=== PATIENT | male | born 1940 | race Caucasian/White ===

== ENCOUNTER 2020-05-01 08:30 | Outpatient (REF) | payer MEDICARE, SELFPAY ==
[2020-05-01 10:35] LABS: Estimated Average Glucose 137 mg/dL; Hemoglobin A1c % 6.4 %
[2020-05-01 10:59] LABS: Carbon Dioxide 26 mmol/L (22-29); Chloride 107 mmol/L (96-108); Potassium 4.4 mmol/L (3.3-5.1); Sodium 143 mmol/L (135-145)
[2020-05-01 11:00] LABS: Alanine Aminotransferase 18 U/L (0-40); Anion Gap 14 (12-20); Blood Urea Nitrogen 19 mg/dL (9-16); Cholesterol 109 mg/dL; Estimated Glomerular Filt Rate > 60; Glucose Fasting 141 mg/dL (60-99); HDL Cholesterol 38 mg/dL; LDL Cholesterol Calculated 44 mg/dl; Triglycerides 139 mg/dL
== END 2020-05-01 08:31 | disposition home or self-care (01) ==
LOC: HO.10HDL 08:30
PROVIDERS: Absent Provider Internal Medicine; Visit Provider Family Medicine
DX: I10 Essential (primary) hypertension (principal); E11.9 Type 2 diabetes mellitus without complications; E78.00 Pure hypercholesterolemia, unspecified; Z79.899 Other long term (current) drug therapy
CPT/HCPCS: 36415; 80051; 80061; 82550; 82565; 82947; 83036; 84460; 84520

== ENCOUNTER 2020-11-02 09:29 | Outpatient (REF) | payer MEDICARE, SELFPAY ==
[2020-11-02 10:52] LABS: Estimated Average Glucose 131 mg/dL; Hemoglobin A1c % 6.2 %
[2020-11-02 10:57] LABS: Anion Gap 16 (12-20); Blood Urea Nitrogen 15 mg/dL (9-16); Carbon Dioxide 23 mmol/L (22-29); Chloride 107 mmol/L (96-108); Glucose Fasting 143 mg/dL (60-99); Potassium 4.2 mmol/L (3.3-5.1); Sodium 142 mmol/L (135-145)
[2020-11-02 11:20] LABS: Prostate Specific Antigen Scr 2.35 ng/mL (<0.05-4.0)
[2020-11-05 12:15] LABS: Microalbum/Creatinine Ratio Ur 58.8 ug/mg cr
== END 2020-11-02 09:30 | disposition home or self-care (01) ==
LOC: HO.LAB 09:29
PROVIDERS: PCP Family Medicine; Visit Provider Family Medicine
DX: I10 Essential (primary) hypertension (principal); E11.9 Type 2 diabetes mellitus without complications; R32 Unspecified urinary incontinence; Z12.5 Encounter for screening for malignant neoplasm of prostate
CPT/HCPCS: 36415; 80051; 82043; 82947; 83036; 84153; 84520

== ENCOUNTER 2021-03-23 23:28 | Inpatient (IN) | payer MEDICARE, SELFPAY ==
--- NOTE | ~2021-03-23 | XR_ITS ---
EXAMINATION: XR CHEST CLINICAL INFORMATION: Weakness, cough, syncope COMPARISON: 08/09/2018 TECHNIQUE: 2 views of the chest were obtained. FINDINGS: The lungs are well expanded. Persistent elevation of the right hemidiaphragm. There is no focal consolidation, edema, or effusion. No pneumothorax. The cardiomediastinal silhouette is within normal limits. No acute osseous abnormality. Degenerative changes of the spine. XR/XR chest 2V IMPRESSION: No acute pulmonary finding.
--- NOTE | ~2021-03-23 | XR_ITS ---
EXAMINATION: XR KNEE, RIGHT CLINICAL INFORMATION: Pain after fall COMPARISON: None TECHNIQUE: AP and lateral views of the right knee. FINDINGS: No definite acute fracture or dislocation is seen. No right knee effusion is seen. Joint spaces are maintained. Seen overlying the femoral condyles measuring 1.7 x 1.0 cm in size. There are prominent vascular calcifications present. There are prominent patella spurs at sites of insertion of the quadriceps tendon and patellar tendon with some segmentation about the quadriceps tendon spur which could be related to acute or chronic injury however I do not definitely see a donor site for an acute fracture and its margins are circumscribed. No significant soft tissue swelling seen in this region. There is also noted to be prominent spurring of the tibial tubercle. There is a sclerotic density XR/XR knee RT 2V IMPRESSION: Prominent changes of enthesopathy about the right knee. No definite acute fracture or effusion is appreciated. Circumscribed sclerotic region overlying the femoral condyles likely representing a benign process.
--- NOTE | ~2021-03-23 | CT_ITS ---
EXAMINATION: NONCONTRAST HEAD CT NONCONTRAST CERVICAL SPINE CT INDICATION INFORMATION: Fall COMPARISON: 03/24/2021 TECHNIQUE: Separate noncontrast CT examinations of the head and cervical spine were performed. Coronal and sagittal images were created for each examination at the technologist workstation. This CT examination was performed using dose optimization techniques as appropriate, variously including the following: *Automated exposure control *Adjustment of mA and/or kV according to patient size (this includes techniques or standardized protocols for targeted exams where dose is matched to indication/reason for exam; i.e. extremities or head) *Use of iterative reconstruction technique DLP: 1301 mGy-cm FINDINGS: Head: There is no evidence of acute intracranial hemorrhage or territorial infarction. No abnormal mass effect or midline shift is seen. Garcia to white matter differentiation is well preserved. No extra-axial fluid collections are identified. No hydrocephalus. Proportional prominence of the ventricles and sulcal spaces is consistent with mild volume loss. Patchy periventricular and deep white matter hypoattenuation is consistent with mild small vessel ischemic changes. No acute osseous or soft tissue abnormality. Mild mucoperiosteal thickening of the right maxillary sinus. The mastoid air cells and visualized portions of the paranasal sinuses are otherwise well aerated. Cervical spine: There is anatomic alignment of the vertebral bodies and posterior elements. The atlantoaxial and atlantooccipital articulations are intact. Vertebral body heights are maintained. There is multilevel intervertebral disc space narrowing with endplate osteophyte formation and facet arthropathy. No evidence of acute fracture. No prevertebral soft tissue swelling. Mild emphysema at the lung apices. The thyroid gland is unremarkable. CT/CT cervical spine wo con IMPRESSION: 1. No acute intracranial finding. 2. No fracture or malalignment of the cervical spine. Moderate degenerative changes.
--- NOTE | ~2021-03-23 | CT_ITS ---
EXAMINATION: CT HEAD WITHOUT CONTRAST CLINICAL INFORMATION: Weakness. Confusion. Syncope. COMPARISON: 01/24/2014 TECHNIQUE: Contiguous axial imaging was performed from the skull base to vertex without intravenous contrast. This CT examination was performed using dose optimization techniques as appropriate, variously including the following: * Automated exposure control * Adjustment of mA and/or kV according to patient size (this includes techniques or standardized protocols for targeted exams where dose is matched to indication/reason for exam; i.e. extremities or head) Use of iterative reconstruction technique DLP: 764 mGy-cm. FINDINGS: There is no evidence of acute intracranial hemorrhage or territorial infarction. No abnormal mass effect or midline shift is seen. Garcia to white matter differentiation is well preserved. No extra-axial fluid collections are identified. No hydrocephalus. Proportional prominence of the ventricles and sulcal spaces is consistent with mild volume loss. Patchy periventricular and deep white matter hypoattenuation is consistent with mild small vessel ischemic changes. The osseous structures and soft tissues are normal. The mastoid air cells and visualized portions of the paranasal sinuses are well aerated. CT/CT head/brain wo con IMPRESSION: No acute intracranial pathology. Chronic volume loss with small vessel ischemic change.
[2021-03-23 23:46] VITALS: BP 132/50; BP 140/80; PULSE 65; PULSE 67; RESP 20; TEMP 36.6; O2SAT 100; O2SAT 98; BMI 12.4
--- NOTE | 2021-03-23 23:57 | ED_ITS ---
HPI - General Adult General Chief complaint: General Medical Stated complaint: WEAKNESS,DIZZINESS XWEEKS,FEELING BETTER NOW Time Seen by Provider: 03/23/21 23:57 Source: patient and family ( , [place] who can be reached at ( [phone]) Mode of arrival: EMS Limitations: altered mental status ( patient has memory deficits secondary to Alzheimer's dementia) History of Present Illness HPI narrative: 80-year-old male who presents emergency department for evaluation of a syncopal episode that occurred at home and from the his . According to his , the patient was in the kitchen to get some diabetic candy when he called for help. When she went into the kitchen she states the patient told her that he felt dizzy as if he was going to pass out. She had him sit in his walker chair and she wheeled him into the bedroom. Which got into the bedroom the patient passed out in the walker chair but did not fall out of a chair. She states that he was unable to talk, his head rolled back, his mouth was open his eyes were shot. He appeared to have difficulty breathing. This lasted approximately 5 minutes. She states when the paramedics arrived at their home, the patient was more awake but lethargic. The paramedics found that the patient's point of care glucose was 250. They gave him a fluid bolus lactated Ringer's and transported him to the emergency department. In the emergency department the patient is awake and alert, he has memory deficits secondary to his Alzheimer's dementiae but he was able to tell me that he felt dizzy as if he was going to pass out but cannot give any other details regarding his presentation. according to his , the patient has had several episodes of diarrhea over the past several days but otherwise has been eating and drinking normally. She states that he has been declining over the past 4 weeks. The patient has diabetic neuropathy and has weakness of his legs. The patient has had at least 8 falls over the past 4 weeks. She states that he refuses to bathe or shave. He has episodes where he stops talking and will not answer questions but has not had any seizure-like activity . She states that he is very deconditioned and they have been pursuing assisted care for him. The patient has received in the Moderna vaccine x3 vaccinations. Related Data Allergies Allergy/AdvReac Type Severity Reaction Status Date / Time No Known Allergies Allergy Unverified 11/23/19 16:29 [No Known Allergies*] Review of Systems 2 Review of Systems: Yes all other systems are reviewed and are negative ( Obtained from ) [facility] Past Medical History [facility] Narrative: past medical history: Diabetes mellitus, coronary disease, myocardial infarction with 2 stents and 2000 and 2015, Alzheimer's dementia, diabetic neuropathy. social history: He lives at home with his . He is a former smoker and smoked approximately 1 pack per day times 15-20 years, he stops 10 years prior. He states that he rarely drinks alcohol. He denies drug use. Social History Social History Alcohol intake: never Patient Tobacco Use Status: Never used Tobacco Use of substances other than those prescribed or required for medical reasons: No Advance Directives: No Advance Directives Information Provided: Yes Physical Exam Vital Signs: Vital Signs: Last Vital Signs Temp 97.3 F 03/24/21 04:00 Pulse 72 03/24/21 04:00 Resp 03/24/21 04:00 BP 140/51 H 03/24/21 04:00 Pulse Ox 96 03/24/21 04:00 BMI result Body Mass Index 12.4 Const: Other: Awake, alert, male patient very pleasant and cooperative, does not appear to be in distress, oriented to person and place, lacks insight as to why he came to the emergency department today HENMT: Head: Yes normal to inspection, Yes normocephalic and Yes atraumatic Ears: external ears normal General nose exam: Normal external nose present Face and sinus: Yes normal facial exam Mouth: Normal oral and palatal mucosa present Throat: Yes posterior oropharynx normal Eyes: General: appearance normal, both eyes and all related structures Pupils: Equal, round and reactive pupils present Neck: Neck: Yes normal visual inspection, Yes no lymphadenopathy, Yes trachea midline and Yes supple Chest: Chest palpation & inspection: normal inspection of the chest and normal palpation of entire chest wall Resp: Effort & Inspection: normal respiratory effort and able to speak in complete sentences Auscultation: clear to auscultation bilaterally Cardio: Rate: regular rate Rhythm: regular rhythm Heart sounds: S1 normal heart sound present, S2 normal heart sound present and no murmurs GI: Inspection: Yes normal to inspection Palpation (GI): Soft to palpation, nontender and no guarding Auscultation: normal bowel sounds : General: Yes no CVA tenderness Back/Spine/Pelvis: Back: no CVA tenderness Skin: General skin exam: no rashes or lesions noted Neuro: Cranial nerves: Yes CN's II-XII intact bilaterally and Yes Equal, round and reactive pupils present Cognition (Neuro): normal cognition Motor exam (neuro): 5/5 motor strength present throughout Extrem: General: Yes normal to inspection Psych: Appearance: grossly normal Speech and movement: Normal speech and movement present Affect: normal affect Attitude: cooperative Thought process: Normal thought process present Thought content: Normal thought content present Course Course Course Narrative: 80-year-old male who presents emergency department for evaluation of a syncopal episode at home witnessed by his . The patient was in his kitchen when he felt dizzy as if he is going to pass out. He called for his who put him in his walker wheelchair and brought him back to the bedroom. While he was still in the wheelchair he had a syncopal episode that lasted approximately 5 minutes with no seizure-like activity according to the . The patient was lethargic but more responsive by the time the paramedics arrived and here in the emergency department the patient is at his baseline. The states the patient has been deteriorating over the past 4 weeks and has had lower extremity weakness secondary to his diabetic neuropathy causing him to fall at least 8 times. She states these had several episodes of diarrhea over the past 2 days otherwise has been in his usual state of health. Initial vital signs revealed a blood pressure of 132/50, pulse of 67, respiratory of 20, temperature of 98? F O2 saturation of 100% on room air. The patient's physical examination was unremarkable. I did order a syncope workup to include CBC, CMP, troponin, SARS /influenza/ RSV testing, Urinalysis, EKG, CT scan of the brain without IV contrast and two view chest x-ray. we will check orthostatic vital s igns. The patient was ordered to get normal saline IV x1 L. 0312: Laboratory evaluation: CBC revealed an elevated white blood count 42833, H&H was 6.6 and 24.3. This was repeated and confirmed at 6.8 and 24.8. Patient has a low MCV of 65.7. Platelet count was normal. CMP revealed an elevated BUN of 27, elevated glucose 133, elevated bilirubin 1.2. High sensitivity troponin I was detectable at 4.9 but not elevated. Lipase was normal. Urinalysis is pending collection. Alcohol levels below detectable limits. Influenza, RSV and COVID-19 test were negative. Chest x-ray was negative. CT scan of the head revealed no acute process, he has chronic volume loss with small vessel ischemic changes. Twelve EKG was unremarkable. Patient's rectal exam revealed loose brown stool which was Hemoccult negative on my examination. The patient has a severe microcytic anemia and I foy spect that he has GI loss, he does have an elevated BUN so it is likely that he might have an upper GI source. The patient will be given Protonix 80 mg IV. Patient was ordered to get 1 unit of packed red blood cells transfused. Will discuss admission with the covering hospitalist. 0420: Patient was accepted by the covering hospitalist. Medical Decision Making Lab Data Result diagrams: 03/24/21 01:42 03/24/21 00:55 Labs: Lab Results 03/24/21 03/24/21 03/24/21 Range/Units 00:55 00:55 00:55 WBC (4.8-10.8) X10*3/uL RBC (4.60-5.80) X10*6/uL Hgb (14.0-18.0) g/dl Hct (42.0-52.0) % MCV (80.0-98.0) fL MCH (27.0-33.0) pg MCHC (31.0-36.0) g/dl RDW (11.0-16.0) % Plt Count (160-400) X10*3/uL MPV (9.4-12.4) fL Immature Gran % (Auto) (0.0-0.4) % Neut % (Auto) (45-73) % Lymph % (Auto) (20-40) % Treasure % (Auto) (2-11) % Eos % (Auto) (0-4) % Baso % (Auto) (0-2) % Lymph # (Auto) (1.2-4.9) X10*3/uL Treasure # (Auto) (0.1-1.2) X10*3/uL Eos # (Auto) (0.0-0.4) X10*3/uL Baso # (Auto) (0.0-0.2) X10*3/uL Abs Immat Gran (auto) (0.00-0.03) X10*3/uL Absolute Neuts (auto) (2.0-8.3) x10*3/uL Absolute Nucleated RBC (0.0-0.012) X10*3/uL Nucleated RBC % (auto) (0.0-0.2) /100WBC Sodium 138 (135-145) mmol/L Potassium 4.2 (3.3-5.1) mmol/L Chloride 102 (96-108) mmol/L Carbon Dioxide 23 (22-29) mmol/L Anion Gap 17 (12-20) BUN 27 H (9-16) mg/dL Creatinine 1.27 (0.5-1.4) mg/dL Estim Creat Clear Calc 22.1 Estimated GFR 54 Random Glucose 133 H (60-115) mg/dL Calcium 9.1 (8.4-10.2) mg/dL Total Bilirubin 1.2 H (0.0-1.0) mg/dL AST 27 (5-37) U/L ALT 18 (0-40) U/L Alkaline Phosphatase 77 (39-117) U/L Troponin I High Sens (<3.5-35.0) ng/L Total Protein 7.0 (6.5-8.0) g/dL Albumin 3.8 (3.5-5.0) g/dL Lipase 37 (8-78) U/L Stool Occult Blood (NEGATIVE) Ethyl Alcohol < 10 mg/dL Influenza Type A (PCR) NEGATIVE (Negative) Influenza Type B (PCR) NEGATIVE (Negative) RSV RNA Qual (PCR) NEGATIVE (Negative) SARS-CoV-2 RNA (RT-PCR) NEGATIVE (Negative) Blood Type Antibody Screen Crossmatch 03/24/21 03/24/21 03/24/21 Range/Units 01:00 01:00 01:42 WBC 11.7 H (4.8-10.8) X10*3/uL RBC 3.70 L (4.60-5.80) X10*6/uL Hgb 6.6 L* 6.8 L* (14.0-18.0) g/dl Hct 24.3 L 24.8 L (42.0-52.0) % MCV 65.7 L (80.0-98.0) fL MCH 17.8 L (27.0-33.0) pg MCHC 27.2 L (31.0-36.0) g/dl RDW 20.0 H (11.0-16.0) % Plt Count 284 (160-400) X10*3/uL MPV 9.0 L (9.4-12.4) fL Immature Gran % (Auto) 0.4 (0.0-0.4) % Neut % (Auto) 78.8 H (45-73) % Lymph % (Auto) 11.2 L (20-40) % Treasure % (Auto) 8.4 (2-11) % Eos % (Auto) 0.7 (0-4) % Baso % (Auto) 0.5 (0-2) % Lymph # (Auto) 1.3 (1.2-4.9) X10*3/uL Treasure # (Auto) 1.0 (0.1-1.2) X10*3/uL Eos # (Auto) 0.1 (0.0-0.4) X10*3/uL Baso # (Auto) 0.1 (0.0-0.2) X10*3/uL Abs Immat Gran (auto) 0.05 H (0.00-0.03) X10*3/uL Absolute Neuts (auto) 9.2 H (2.0-8.3) x10*3/uL Absolute Nucleated RBC 0.000 (0.0-0.012) X10*3/uL Nucleated RBC % (auto) 0.0 (0.0-0.2) /100WBC Sodium (135-145) mmol/L Potassium (3.3-5.1) mmol/L Chloride (96-108) mmol/L Carbon Dioxide (22-29) mmol/L Anion Gap (12-20) BUN (9-16) mg/dL Creatinine (0.5-1.4) mg/dL Estim Creat Clear Calc Estimated GFR Random Glucose (60-115) mg/dL Calcium (8.4-10.2) mg/dL Total Bilirubin (0.0-1.0) mg/dL AST (5-37) U/L ALT (0-40) U/L Alkaline Phosphatase (39-117) U/L Troponin I High Sens 4.9 (<3.5-35.0) ng/L Total Protein (6.5-8.0) g/dL Albumin (3.5-5.0) g/dL Lipase (8-78) U/L Stool Occult Blood (NEGATIVE) Ethyl Alcohol mg/dL Influenza Type A (PCR) (Negative) Influenza Type B (PCR) (Negative) RSV RNA Qual (PCR) (Negative) SARS-CoV-2 RNA (RT-PCR) (Negative) Blood Type Antibody Screen Crossmatch 03/24/21 03/24/21 Range/Units 01:42 03:10 WBC (4.8-10.8) X10*3/uL RBC (4.60-5.80) X10*6/uL Hgb (14.0-18.0) g/dl Hct (42.0-52.0) % MCV (80.0-98.0) fL MCH (27.0-33.0) pg MCHC (31.0-36.0) g/dl RDW (11.0-16.0) % Plt Count (160-400) X10*3/uL MPV (9.4-12.4) fL Immature Gran % (Auto) (0.0-0.4) % Neut % (Auto) (45-73) % Lymph % (Auto) (20-40) % Treasure % (Auto) (2-11) % Eos % (Auto) (0-4) % Baso % (Auto) (0-2) % Lymph # (Auto) (1.2-4.9) X10*3/uL Treasure # (Auto) (0.1-1.2) X10*3/uL Eos # (Auto) (0.0-0.4) X10*3/uL Baso # (Auto) (0.0-0.2) X10*3/uL Abs Immat Gran (auto) (0.00-0.03) X10*3/uL Absolute Neuts (auto) (2.0-8.3) x10*3/uL Absolute Nucleated RBC (0.0-0.012) X10*3/uL Nucleated RBC % (auto) (0.0-0.2) /100WBC Sodium (135-145) mmol/L Potassium (3.3-5.1) mmol/L Chloride (96-108) mmol/L Carbon Dioxide (22-29) mmol/L Anion Gap (12-20) BUN (9-16) mg/dL Creatinine (0.5-1.4) mg/dL Estim Creat Clear Calc Estimated GFR Random Glucose (60-115) mg/dL Calcium (8.4-10.2) mg/dL Total Bilirubin (0.0-1.0) mg/dL AST (5-37) U/L ALT (0-40) U/L Alkaline Phosphatase (39-117) U/L Troponin I High Sens (<3.5-35.0) ng/L Total Protein (6.5-8.0) g/dL Albumin (3.5-5.0) g/dL Lipase (8-78) U/L Stool Occult Blood NEGATIVE (NEGATIVE) Ethyl Alcohol mg/dL Influenza Type A (PCR) (Negative) Influenza Type B (PCR) (Negative) RSV RNA Qual (PCR) (Negative) SARS-CoV-2 RNA (RT-PCR) (Negative) Blood Type A Positive Antibody Screen NEGATIVE Crossmatch See Detail Critical Care Time Critical Care Time Critical Care Time: Yes Total Critical Care Time: 35 Attestation: Critical Care: The patient was critically ill with a high probability of imminent or life threatening deterioration. I spent greater than 30 minutes of discontinuous time evaluating the patient,delivering critical care at the bedside, discussing and evaluating pertinent data with consultants. Critical care time does not include time spent performing separately billable procedures or teaching. Total time spent performing critical care was 35 minutes.
[2021-03-24] VITALS (14 sets, daily range): BP systolic 96–169; BP diastolic 43–83; PULSE 58–87; RESP 14–18; TEMP 36.3–37.2; O2SAT 95–100
--- NOTE | 2021-03-24 00:18 | ECG_ITS ---
Test Reason : weakness Blood Pressure : / mmHG Vent. Rate : 067 BPM Atrial Rate : 067 BPM P-R Int : 188 ms QRS Dur : 080 ms QT Int : 426 ms P-R-T Axes : 074 -11 024 degrees QTc Int : 450 ms Sinus rhythm with Premature supraventricular complexes Otherwise normal ECG When compared with ECG of 10-JUN-2017 13:56, Premature supraventricular complexes are now Present Referred By: Piotr Hernandez Electronically Signed By:Griffin Horton
[2021-03-24 01:05] LABS: MANUAL DIFF FLAG NO
[2021-03-24 01:13] LABS: Ethanol < 10 mg/dL
[2021-03-24 01:15] LABS: Basophils Absolute Auto 0.1 X10*3/uL (0.0-0.2); Basophils Percent Auto 0.5 % (0-2); Eosinophils Absolute Auto 0.1 X10*3/uL (0.0-0.4); Eosinophils Percent Auto 0.7 % (0-4); Hematocrit 24.3 % (42.0-52.0); Imm Gran Abs Auto 0.05 X10*3/uL (0.00-0.03); Imm Gran Pct Auto 0.4 % (0.0-0.4); Lymphocytes Absolute Auto 1.3 X10*3/uL (1.2-4.9); Lymphocytes Percent Auto 11.2 % (20-40); Mean Corpuscular HGB Conc 27.2 g/dl (31.0-36.0); Mean Corpuscular Hemoglobin 17.8 pg (27.0-33.0); Mean Corpuscular Volume 65.7 fL (80.0-98.0); Monocytes Percent Auto 8.4 % (2-11); Neutrophils Absolute Auto 9.2 x10*3/uL (2.0-8.3); Neutrophils Percent Auto 78.8 % (45-73); Platelet Count 284 X10*3/uL (160-400); White Blood Count 11.7 X10*3/uL (4.8-10.8)
[2021-03-24 01:17] LABS: Hemoglobin 6.6 g/dl (14.0-18.0)
[2021-03-24 01:18] LABS: Alanine Aminotransferase 18 U/L (0-40); Albumin Level 3.8 g/dL (3.5-5.0); Alkaline Phosphatase 77 U/L (39-117); Anion Gap 17 (12-20); Aspartate Amino Transferase 27 U/L (5-37); Bilirubin Total 1.2 mg/dL (0.0-1.0); Blood Urea Nitrogen 27 mg/dL (9-16); Calcium 9.1 mg/dL (8.4-10.2); Carbon Dioxide 23 mmol/L (22-29); Chloride 102 mmol/L (96-108); Creatinine Clr Calc Pharmacy 22.1; Estimated Glomerular Filt Rate 54; Glucose Random 133 mg/dL (60-115); Lipase 37 U/L (8-78); Potassium 4.2 mmol/L (3.3-5.1); Sodium 138 mmol/L (135-145)
[2021-03-24 01:26] LABS: Troponin-I High Sensitivity 4.9 ng/L (<3.5-35.0)
[2021-03-24] MEDS: 0.9 % Sodium Chloride 1,000 ML 999 ML IV (01:29)
[2021-03-24 01:38] LABS: Influenza A PCR NEGATIVE (Negative); Influenza B PCR NEGATIVE (Negative); Resp Syncy Virus RNA Qual PCR NEGATIVE (Negative); SARS COV2 PCR INHOUSE NEGATIVE (Negative)
[2021-03-24 01:49] LABS: Hematocrit 24.8 % (42.0-52.0)
[2021-03-24 01:51] LABS: Hemoglobin 6.8 g/dl (14.0-18.0)
[2021-03-24 03:19] LABS: OBS Int Ctl Valid YES; OBS1 NEGATIVE (NEGATIVE)
[2021-03-24] MEDS: Pantoprazole Sodium 40 MG/10 ML VIAL 80 MG IVPUSH (03:51)
[2021-03-24 05:47] LABS: Appearance Urine CLEAR; Color Urine YELLOW; Glucose Urine UA NEG (NEG); Leukocyte Esterase Urine NEG (NEG); Nitrite Urine NEG (NEG); Specific Gravity - Urine >= 1.030 (1.005-1.025); Urine Blood NEG (NEG); Urine Ketones 5 MG/DL (NEG); Urine Protein NEG (NEG-TRACE)
--- NOTE | 2021-03-24 06:01 | P.HPHOSP_ITS ---
History of Present Illness Date of Service: 03/24/21 Chief Complaint: Syncope this is an 80-year-old male with past medical history of diabetes, coronary artery disease, PA status post stent placements to 1001 in 2015, Alzheimer's dementia, diabetic neuropathy who presents to the hospital with a syncopal episode witnessed by . Patient himself is alert to self and place but not to time or the events surrounding his syncopal episode. According to the patient has been declining for the past month, he also reports constant dizziness, loss of balance, he has had more than 8 falls within the past 8 mon ths. According to the patient was standing in the kitchen when he syncopized lasting for about 5 minutes. Patient reports that he did not hit his head, he has shortness of breath on exertion, reports no chest pain, no abdominal pain, no nausea or vomiting, he had diarrhea but has now resolved, He has no urinary symptoms and no lower extremity edema. Patient denies any black stools, no hematemesis or hematuria On arrival to the ED patient hemodynamically stable with no significant abnormal vitals Labs on arrival significant for WBC count of 11.7, 6.6, hematocrit 24.3, total bili of 1.2 which is chronically elevated, UA pending, COVID-19 negative, alcohol negative, stool occult blood negative, chest x-ray negative, has CT shows no acute intracranial pathology. Review of Systems Review of Systems: Yes all other systems are reviewed and are negative [facility] Medical History (Updated 03/24/21 @ 06:09 by Solitario Watkins MD) Alzheimer's dementia Coronary artery disease Diabetes Diabetic neuropathy Pertinent family history: denies any family history of coronary artery disease Surgical History (Updated 03/24/21 @ 06:08 by Solitario Watkins MD) No pertinent past surgical history Social History Alcohol intake: never Patient Tobacco Use Status: Never used Tobacco Use of substances other than those prescribed or required for medical reasons: No Advance Directives: No Advance Directives Information Provided: Yes Meds Allergies Allergy/AdvReac Type Severity Reaction Status Date / Time No Known Allergies Allergy Unverified 11/23/19 16:29 [No Known Allergies*] Physical Exam Vital Signs and Narrative: Vital Signs: Last Vital Signs Temp 97.3 F 03/24/21 04:00 Pulse 72 03/24/21 04:00 Resp 17 03/24/21 04:00 BP 140/51 H 03/24/21 04:00 Pulse Ox 96 03/24/21 04:00 BMI result Body Mass Index 12.4 Const: Other: patient oriented to self and place but not time. Answers questions appropriately General: cooperative and no acute distress Eyes: General: appearance normal, both eyes and all related structures Pupils: Equal, round and reactive pupils present Resp: Effort & Inspection: normal respiratory effort Auscultation: clear to auscultation bilaterally Cardio: Rate: regular rate Rhythm: regular rhythm GI: Palpation (GI): Soft to palpation Auscultation: normal bowel sounds Skin: General skin exam: no rashes or lesions noted Neuro: Cranial nerves: Yes Equal, round and reactive pupils present Cognition (Neuro): normal cognition Extrem: General: Yes normal to inspection and Yes no pedal edema Results Labs CBC and Chem 7: 03/24/21 01:42 03/24/21 00:55 Labs: Laboratory Results - last 24 hr 03/24/21 03/24/21 03/24/21 00:55 00:55 00:55 MCV MCH MCHC RDW Plt Count MPV Immature Gran % (Auto) Neut % (Auto) Lymph % (Auto) [place] % (Auto) Eos % (Auto) Baso % (Auto) Lymph # (Auto) [place] # (Auto) Eos # (Auto) Baso # (Auto) Abs Immat Gran (auto) Absolute Neuts (auto) Absolute Nucleated RBC Nucleated RBC % (auto) Anion Gap 17 Estim Creat Clear Calc 22.1 Estimated GFR 54 Random Glucose 133 H Calcium 9.1 Total Bilirubin 1.2 H AST 27 ALT 18 Alkaline Phosphatase 77 Troponin I High Sens Total Protein 7.0 Albumin 3.8 Lipase 37 Stool Occult Blood Ethyl Alcohol < 10 Influenza Type A (PCR) NEGATIVE Influenza Type B (PCR) NEGATIVE RSV RNA Qual (PCR) NEGATIVE SARS-CoV-2 RNA (RT-PCR) NEGATIVE Blood Type Antibody Screen Crossmatch 03/24/21 03/24/21 03/24/21 01:00 01:00 01:42 MCV 65.7 L MCH 17.8 L MCHC 27.2 L RDW 20.0 H Plt Count 284 MPV 9.0 L Immature Gran % (Auto) 0.4 Neut % (Auto) 78.8 H Lymph % (Auto) 11.2 L [place] % (Auto) 8.4 Eos % (Auto) 0.7 Baso % (Auto) 0.5 Lymph # (Auto) 1.3 [place] # (Auto) 1.0 Eos # (Auto) 0.1 Baso # (Auto) 0.1 Abs Immat Gran (auto) 0.05 H Absolute Neuts (auto) 9.2 H Absolute Nucleated RBC 0.000 Nucleated RBC % (auto) 0.0 Anion Gap Estim Creat Clear Calc Estimated GFR Random Glucose Calcium Total Bilirubin AST ALT Alkaline Phosphatase Troponin I High Sens 4.9 Total Protein Albumin Lipase Stool Occult Blood Ethyl Alcohol Influenza Type A (PCR) Influenza Type B (PCR) RSV RNA Qual (PCR) SARS-CoV-2 RNA (RT-PCR) Blood Type A Positive Antibody Screen NEGATIVE Crossmatch See Detail 03/24/21 03:10 MCV MCH MCHC RDW Plt Count MPV Immature Gran % (Auto) Neut % (Auto) Lymph % (Auto) [place] % (Auto) Eos % (Auto) Baso % (Auto) Lymph # (Auto) [place] # (Auto) Eos # (Auto) Baso # (Auto) Abs Immat Gran (auto) Absolute Neuts (auto) Absolute Nucleated RBC Nucleated RBC % (auto) Anion Gap Estim Creat Clear Calc Estimated GFR Random Glucose Calcium Total Bilirubin AST ALT Alkaline Phosphatase Troponin I High Sens Total Protein Albumin Lipase Stool Occult Blood NEGATIVE Ethyl Alcohol Influenza Type A (PCR) Influenza Type B (PCR) RSV RNA Qual (PCR) SARS-CoV-2 RNA (RT-PCR) Blood Type Antibody Screen Crossmatch Imaging Radiologist's Impressions: Impressions Chest X-Ray 03/24/21 01:15 IMPRESSION: No acute pulmonary finding. Head CT 03/24/21 01:25 IMPRESSION: No acute intracranial pathology. Chronic volume loss with small vessel ischemic change. Assessment and Plan (1) Syncope: Qualifiers: Encounter type: initial encounter Status: Acute (2) Microcytic anemia: Status: Acute (3) Leukocytosis: Status: Acute 80-year-old male with past medical history of diabetes, Alzheimer's dem entia presents to hospital syncopal episode. # syncope - most likely secondary to severe anemia versus cardiogenic - anemia of 6.6, reports frequent dizziness - EKG shows no significant abnormality and no prolonged QT - at this time will admit to telemetry, transfuse PRBC and will obtain ech ocardiogram given his hx of CAD # microcytic anemia - unclear etiology, stool occult blood negative - Will obtain ferritin, folic acid and B12 - being transfuse 1 unit of PRBC - follow CBC # leukocytosis - possibly reactive - no evidence of infection, chest x-ray negative, afebrile, UA is pending - follow CBC patient's med reviews pending, will resume his home medications once medica tions have been reconciled Quality Stroke Does the patient have a stroke diagnosis?: No VTE Prior VTE?: No VTE Risk Level:: Medical - moderate - high VTE Device Contraindication: Treatment Not Indicated VTE Drug Contraindication: N/A - Med Ordered
[2021-03-24 08:12] LABS: Ferritin 8 ng/mL (20-250)
[2021-03-24 08:38] LABS: Folate 16.5 ng/mL (> or = 4.0); Vitamin B12 502 pg/mL (200-900)
--- NOTE | 2021-03-24 09:12 | PHA.MEDREC ---
Pharmacy Consult ? Medication Reconciliation Pharmacy has completed the medication reconciliation. Patient is confused. Confirmed medications with patient's Carol. Ngozi Kiser, KeiraD
--- NOTE | 2021-03-24 10:30 | CA_ITS ---
Transthoracic Echocardiogram Patient (Last, First, Middle): Carlo Maradiaga L Gender: Male Date of : 1940 Age: 80 Procedure Date: 03/24/2021 Procedure Type: Transthoracic Echocardiogram Location: ER Height: 170.18 cm Weight: 88.45 kg BSA: 2.00 m2 Heart Rate: bpm BP: 152 / 70 mmHg Photocomposition Keyboard Operator: KEYONNA Referring MD: Solitario Watkins MD Symptoms: syncope Study Quality: Fair Conclusions: - Normal left ventricular size, thickness, systolic function, and wall motion. The visually estimated ejection fraction is between 60-65%. - Normal right ventricular cavity size and systolic function. - There is mild dilatation of the ascending aorta measuring 3.50 cm. Findings Left Ventricle Normal left ventricular size, thickness, systolic function, and wall motion. The visually estimated ejection fraction is between 60-65%. Abnormal diastolic function is noted. Spectral Doppler is indicative of an impaired relaxation filling pattern. E/E prime ratio is between 8 and 15 consistent with indeterminate filling pressures. Right Ventricle Normal right ventricular cavity size and systolic function. Atria Both atria are normal in size. Aortic Valve Normal aortic valve structure and function. There is no aortic valve stenosis. There is no aortic valve regurgitation. Mitral Valve Normal mitral valve structure and function. There is no mitral valve regurgitation. There is no mitral valve stenosis. Pulmonic Valve The pulmonic valve is likely normal. Tricuspid Valve Normal tricuspid valve structure and function. There is trace tricuspid valve regurgitation. Normal right atrial pressure. There is no evidence of pulmonary hypertension. Great Vessels There is mild dilatation of the ascending aorta measuring 3.50 cm. The visualized portions of the pulmonary artery and branches are normal. Venous The inferior vena cava is normal in size and collapses greater than 50% with inspiration. Pericardium/Pleural There is no evidence of pericardial effusion. Measurements 2D Linear Measurements IVSd: 1.14 0.6-0.9/0.6-1.0 cm LVIDd: 4.70 3.9-5.3/4.2-5.9 cm LVIDd Index: 2.35 2.4-3.2/2.2-3.1 cm/m2 LVIDs: 3.06 2.0-3.6 cm LVPWd: 1.07 0.7-1.1 cm Ao Root: 3.90 2.1-3.5 cm LA Diam: 3.50 2.7-3.8/3.0-4.0 cm LAIDs Index: 1.75 1.5-2.3 cm/m2 LV Mass: 235.16 67-162/88-224 g LV Mass Index: 117.58 43-95/49-115 g/m2 LVOT Diam: 2.00 3.0+(-)1.3 cm 2D Systolic Function EF 4C: 67.30 >55% EF 2C: 67.70 >55% EF BiP: 67.70 >55% Mitral Valve MV Pk E: 0.67 MV PK A: 1.01 MV Decel Time: 232.00 E/A: 0.70 E'Lateral: 7.40 E'Medial: 6.74 E/E' Med: 9.90 E/E' Lat: 9.10 PHT: 68.00 MVA PHT: 3.24 Decel Chambers: 2.88 Aortic Valve AoV Pk Mil: 1.28 AoV Mn Mil: 0.83 AoV VTI: 0.25 AoV Pk Grad: 7.00 Aov Mn Grad: 3.00 TRISTA Cont.VTI: 2.87 LVOT LVOT Pk Mil: 1.14 LVOT Mn Mil: 0.78 LVOT VTI: 0.23 LVOT Pk Grad: 5.00 LVOT Mn Grad: 3.00 LVOT Diam: 2.00 LVOT Area: 3.14 Diastolic Function MV Pk E: 0.67 MV Pk A: 1.01 E/A: 0.70 E'Medial: 6.74 E/E' Med: 9.90 E' Laterial: 7.40 E/E' Lat: 9.10 Right Ventricle TAPSE (mm): 2.30 TVS' Mil: 12.00 Tricuspid Valve TR Pk Mil: 2.59 TR Pk Grad: 27.00 RA Press: 8.00 RVSP: 35.00 Great Vessels Aorta Ao Root-2D: 3.90 2.0-3.7 cm Ao Asc: 3.50 2.1-3.4 cm Ao Arch: 2.80 Updated in Other Vendor System with Status of Final Griffin Horton MD electronically signed on 03/24/2021 7:43:02 PM with status of Final
--- NOTE | 2021-03-24 11:41 | P.EN_ITS ---
Event Note Date of Service: 03/24/21 Event Note: Pt seen and examined personaly this morning, he presented with syn cope and found to be very anemic, occult blood negative, low MCV.. s/p 1 units and will transfuse 1 more units, will get GI consult and continue PPI. O/w assessment and plan per H and P of today
[2021-03-24 15:23] LABS: Hematocrit 29.1 % (42.0-52.0); Hemoglobin 8.1 g/dl (14.0-18.0); Mean Corpuscular HGB Conc 27.8 g/dl (31.0-36.0); Mean Corpuscular Hemoglobin 18.8 pg (27.0-33.0); Mean Corpuscular Volume 67.5 fL (80.0-98.0); Platelet Count 278 X10*3/uL (160-400); Red Blood Count 4.31 X10*6/uL (4.60-5.80); Red Cell Distribution Width 21.5 % (11.0-16.0); White Blood Count 11.7 X10*3/uL (4.8-10.8)
--- NOTE | 2021-03-24 16:27 | P.EN_ITS ---
Event Note Date of Service: 03/24/21 Event Note: Imp:Significant microcytic anemia with Iron deficiency and associa sharon symptoms of syncope and SOB. He takes 1 81mg ASA daily, but denies any NSAIDs nor other blood thinners. He has had 2 previous colonoscopies with removal of adenomas, with his last one being in 2005. He has had some anorexia and weight loss, but without other localizing GI symptoms. His stool is Hemoccult negative. Diff Dx: Despite negative stool Hemoccult, would want to exclude upper or lower GI neoplasm, AVM's, and/or silent ulcer disease/gastritis/esophagitis. Would also want to exclude celiac disease with Iron malabsorption. Rec: Transfuse to Hgb 8-9, clear liquids, po PPI, and will plan for upper endoscopy and colonoscopy with MAC for Wednesday, 03/26, with me or Dr. Romano. Full consent obtained from the patient and his , including risks of bleeding and perforation. They are both comfortable with this plan. Thanks
--- NOTE | 2021-03-24 16:51 | MHC.SHP ---
Pre-Procedural Eval Section A Date of Service: 03/26/21 The patient is an INPATIENT: Yes The History & Physical has been completed within 30 days and I have reviewed it.: Yes Section B Chief Complaint: syncope, anemia Allergies: Allergies Allergy/AdvReac Type Severity Reaction Status Date / Time No Known Allergies Allergy Unverified 11/23/19 16:29 [No Known Allergies*] Plan I have reviewed the history and physical and performed a pertinent physical examination on my patient. No changes have occurred unless specified.
--- NOTE | 2021-03-24 17:25 | CONS_ITS ---
DATE OF SERVICE: 03/24/2021 REASON FOR CONSULTATION: Iron-deficiency anemia. HISTORY OF PRESENT ILLNESS: This has been obtained from the patient, his , and the medical record. The patient is an 80-year-old male, who describes progressive symptoms of shortness of breath, weakness, and eventual syncope that prompted his ER visit. On admission here, he was found to be markedly anemic with an initial hemoglobin of 6.6 with MCV of 66. The most recent CBC's prior to that in April 2019, revealed a hemoglobin of 10.9 with MCV 84 and hemoglobin of 12.0 in October 2018. The patient does describe some anorexia and some weight loss, but denies any dysphagia nor chronic heartburn. He has had some lower abdominal cramping intermittently, but not on a regular basis. He denies any upper abdominal pain. His bowel movements have been fairly regular and he denies any hematochezia nor melena. He denies any nausea, vomiting, jaundice, nor fever. The patient does take one aspirin 81 mg daily, but no chronic NSAIDs. He denies alcohol use nor tobacco use. He denies any known family history of GI malignancy. His past history is notable for 2 previous colonoscopies in 1999 and 2005 with removal of tubular adenomas, but no colonoscopies since that time. He has never had an upper endoscopy. MEDICATIONS: At home include acetaminophen, albuterol inhaler p.r.n., aspirin 81 mg, atenolol with chlorthalidone, atorvastatin, bupropion, coenzyme Q10, doxazosin, lorazepam, memantine, metformin, multivitamins, omeprazole 20 mg daily, and ibuprofen p.r.n., which he reports that he uses rarely. Medications here in the hospital include omeprazole 40 mg b.i.d., multivitamins, memantine, lorazepam p.r.n., hydrochlorothiazide, doxazosin, bupropion, atorvastatin, atenolol, and albuterol. PAST MEDICAL HISTORY: He denies any surgeries. Tubular adenomas of the colon as described above. Coronary artery disease with previous stent placement with the most recent one being in 2014. He has diabetes mellitus. Diabetic neuropathy. There is a report of Alzheimer dementia in the chart. He denies history of lung disease nor stroke. SOCIAL HISTORY: He is . He does not smoke nor use any alcohol. FAMILY HISTORY: Noncontributory. REVIEW OF SYSTEMS: CONSTITUTIONAL: He has been feeling weak at home and his appetite has been diminished. SKIN: No rash. No pruritus. CARDIAC: No chest pain. PULMONARY: No cough, no hemoptysis. GI: As above. URINARY: No dysuria, no hematuria. PHYSICAL EXAMINATION: GENERAL: The patient is a pleasant, pale, alert male, in no distress. SKIN: Warm and dry. HEENT: Anicteric sclerae. NECK: Supple. CARDIAC: Normal S1, S2. ABDOMEN: Soft, nondistended, nontender without mass. EXTREMITIES: Without edema. NEUROLOGIC: He is alert and oriented to person, place, and time. He seems to answer all questions appropriately. LABORATORY DATA: As above. White blood cell count 11.7, hemoglobin up to 8.1 today from 6.8 earlier today after transfusion, platelets 278,000. Normal electrolytes. BUN 27, creatinine 1.3. Ferritin of 8. Total bilirubin 1.2, AST 27, ALT 18, alkaline phosphatase 77, albumin 3.8, lipase 37, vitamin B12 502, folate level 16.5. Stool was Hemoccult negative. Chest x-ray was unremarkable. IMPRESSION: Given the patient's clinical history of his progressive symptoms with a significant microcytic anemia, this appears to be quite consistent with a chronic progressive anemia due to probable blood loss. Based on his presentation and laboratories, despite the negative stool hemoccult, I would want to exclude any type of GI source of blood loss, including upper or lower GI neoplasm, angiodysplasias, silent ulcer disease, silent gastritis, silent esophagitis, and anything such as celiac disease with iron malabsorption. At this point, he appears very stable. PLAN: I would recommend continue transfusions to maintain hemoglobin between 8 and 9, and then once he is clinically stable, we would plan for a bowel prep and upper endoscopy and colonoscopy with monitored anesthesia care, probably on March 26, with either myself or Dr. Romano. Full consent is obtained from the patient and his for this, including risks of bleeding and perforation. I would continue his PPI, but I think once a day should be sufficient. He can start clear liquids for now. We will place orders for his bowel prep most likely tomorrow. This has all been discussed in detail with the patient and his and they are both comfortable with this plan. Thank you for the consultation. MD ONEYDA Wlaton/ROSIO / [phone] JESENIA
[2021-03-24] MEDS: Omeprazole 40 MG CAPSULE.DR PO (17:55)
[2021-03-24] MEDS: Doxazosin Mesylate 2 MG TABLET 4 MG PO (21:28)
[2021-03-24] MEDS: Memantine HCl 10 MG TABLET PO (21:28)
[2021-03-24] MEDS: Atorvastatin Calcium 10 MG TABLET PO (21:28)
[2021-03-24] MEDS: LORazepam 0.5 MG TABLET PO (21:28)
[2021-03-25] VITALS (7 sets, daily range): BP systolic 101–167; BP diastolic 46–70; PULSE 64–81; RESP 18–20; TEMP 36.2–37.3; O2SAT 94–99
[2021-03-25 05:22] LABS: Hematocrit 31.8 % (42.0-52.0); Hemoglobin 9.2 g/dl (14.0-18.0); Mean Corpuscular HGB Conc 28.9 g/dl (31.0-36.0); Mean Corpuscular Hemoglobin 20.1 pg (27.0-33.0); Mean Corpuscular Volume 69.4 fL (80.0-98.0); Mean Platelet Volume 9.1 fL (9.4-12.4); Platelet Count 273 X10*3/uL (160-400); Red Blood Count 4.58 X10*6/uL (4.60-5.80); Red Cell Distribution Width 22.9 % (11.0-16.0); White Blood Count 11.7 X10*3/uL (4.8-10.8)
[2021-03-25 05:27] LABS: INTERNATIONAL NORM RATIO 1.2 (0.9-1.1)
[2021-03-25] MEDS: hydroCHLOROthiazide 25 MG TABLET PO (06:01)
[2021-03-25] MEDS: atenoloL 50 MG TABLET PO (06:01)
[2021-03-25] MEDS: Omeprazole 40 MG CAPSULE.DR PO ×2 (06:01→15:35)
[2021-03-25] MEDS: Multivitamin TABLET 1 TAB PO (08:40)
--- NOTE | 2021-03-25 13:07 | P.PNIM_ITS ---
Subjective Subjective Date of Service: 03/25/21 Interval History: F/u on anemia, gib, no active bleed, H/H is better after transfusion Review of Systems no cp no sob Physical Exam Vital Signs: Vital Signs: Last Vital Signs Temp 98.2 F 03/25/21 11:52 Pulse 81 03/25/21 11:52 Resp 20 03/25/21 11:52 BP 101/46 L 03/25/21 11:52 Pulse Ox 96 03/25/21 11:52 BMI result Body Mass Index 12.4 Objective Data Active Medications Albuterol Sulfate (Albuterol Sulfate 90 Mcg 8 Gm Inhaler) 2 puff INHALE Q4H PRN PRN Reason: wheezing Atenolol (Atenolol 50 Mg Tablet) 50 mg PO DAILY@0630 [facility] Last Admin: 03/25/21 06:01 Dose: 50 mg Documented by: TIFFANY Atorvastatin Calcium (Atorvastatin Calcium 10 Mg Tablet) 10 mg PO BEDTIME [facility] Last Admin: 03/24/21 21:28 Dose: 10 mg Documented by: TIFFANY Bisacodyl (Bisacodyl 5 Mg Tablet.) 10 mg PO ONCE ONE Stop: 03/25/21 15:45 Doxazosin Mesylate (Doxazosin Mesylate 2 Mg Tablet) 4 mg PO BEDTIME [facility]; Protocol Last Admin: 03/24/21 21:28 Dose: 4 mg Documented by: TIFFANY Hydrochlorothiazide (Hydrochlorothiazide 25 Mg Tablet) 25 mg PO DAILY@0630 [facility] Last Admin: 03/25/21 06:01 Dose: 25 mg Documented by: TIFFANY Lorazepam (Lorazepam 0.5 Mg Tablet) 0.5 mg PO BEDTIME [facility] Last Admin: 03/24/21 21:28 Dose: 0.5 mg Documented by: TIFFANY Memantine (Memantine Hcl 10 Mg Tablet) 10 mg PO BEDTIME [facility] Last Admin: 03/24/21 21:28 Dose: 10 mg Documented by: TIFFANY Multivitamins/Vitamin C (Multivitamin Tablet) 1 tab PO DAILY [facility] Last Admin: 03/25/21 08:40 Dose: 1 tab Documented by: FAINA Non-Formulary Medication (Bupropion Hcl) 1 tab PO DAILY [facility] Omeprazole (Omeprazole 40 Mg Capsule.) 40 mg PO BID@0630,1630 [facility] Last Admin: 03/25/21 06:01 Dose: 40 mg Documented by: TIFFANY Polyethylene Glycol/Electrolytes (Peg 3350/Na Sulf,Bicarb,Cl/Kcl 4,000 Ml Soln.Recon) 4,000 ml PO ONCE ONE Stop: 03/25/21 15:02 Labs CBC & Chem 7: 03/25/21 04:36 03/24/21 00:55 Labs: Laboratory Results - last 24 hr 03/24/21 03/24/21 03/25/21 01:42 15:07 04:36 MCV 67.5 L 69.4 L MCH 18.8 L 20.1 L MCHC 27.8 L 28.9 L RDW 21.5 H 22.9 H Plt Count 278 273 MPV 9.0 L 9.1 L Absolute Nucleated RBC 0.000 0.000 Nucleated RBC % (auto) 0.0 0.0 PT INR Blood Type A Positive Antibody Screen NEGATIVE Crossmatch See Detail 03/25/21 04:36 MCV MCH MCHC RDW Plt Count MPV Absolute Nucleated RBC Nucleated RBC % (auto) PT 14.0 H INR 1.2 H Blood Type Antibody Screen Crossmatch Assessment and Plan (1) Microcytic anemia: Status: Acute (2) Syncope: Status: Acute Assessment and Plan: 80-year-old male with past medical history of diabetes, Alzheimer's? dementia presents to hospital syncopal episode.? #? syncope -? most likely secondary to severe anemia versus cardiogenic -? anemia of 6.6, reports frequent dizziness -? EKG shows no significant abnormality and no prolonged QT, no arrythmia on monitor #? microcytic anemia--negative FOBP -good effect with 2 units of RBC -Will have endoscopy tomorrow -PPI #? leukocytosis--reactive Quality Stroke Does the patient have a stroke diagnosis?: No VTE Prior VTE?: No VTE Risk Level:: Medical - moderate - high VTE Device Contraindication: Treatment Not Indicated VTE Drug Contraindication: N/A - Med Ordered
--- NOTE | 2021-03-25 14:13 | MHC.CLN ---
PT'S ADMITTING WT 34.9KG IS INACCURATE PT REPORTS UBW 180#, BMI 29 OBESE FOR HT APPETITE IS GOOD PT APPEARS OBESE FOR HT; DENIES ANY RECENT WT LOSS OBTAIN WEIGHT; DISCUSSED WITH KENZIE
[2021-03-25] MEDS: bisacodyL 5 MG TABLET.DR 10 MG PO (15:35)
[2021-03-25] MEDS: PEG 3350/Na Sulf,Bicarb,Cl/KCL 4,000 ML SOLN.RECON 4000 ML PO (16:58)
[2021-03-25] MEDS: Doxazosin Mesylate 2 MG TABLET 4 MG PO (20:21)
[2021-03-25] MEDS: Atorvastatin Calcium 10 MG TABLET PO (20:22)
[2021-03-25] MEDS: LORazepam 0.5 MG TABLET PO (20:22)
[2021-03-25] MEDS: Memantine HCl 10 MG TABLET PO (20:22)
[2021-03-26] VITALS (9 sets, daily range): BP systolic 106–157; BP diastolic 49–72; PULSE 55–78; RESP 17–20; TEMP 36.2–36.9; O2SAT 93–100; BMI 29.8
[2021-03-26 05:16] LABS: MANUAL DIFF FLAG NO
--- NOTE | 2021-03-26 05:27 | PM.EVENT ---
Event Note Date of Service: 03/26/21 Event Note: fall: Patient had an unwitnessed fall on 03/26/2021 around 5:00 a.m.. Exam benign except for right great toe nail slowed of with small bleed. Range of motion at the ankle intact. Patient denies any loss of consciousness or head strike. CT scan pending
[2021-03-26 05:32] LABS: Anion Gap 15 (12-20); Blood Urea Nitrogen 21 mg/dL (9-16); Calcium 9.1 mg/dL (8.4-10.2); Carbon Dioxide 26 mmol/L (22-29); Chloride 102 mmol/L (96-108); Creatinine Clr Calc Pharmacy 24.4; Estimated Glomerular Filt Rate > 60; Glucose Fasting 107 mg/dL (60-99); Potassium 3.4 mmol/L (3.3-5.1); Sodium 140 mmol/L (135-145)
[2021-03-26 05:45] LABS: Basophils Absolute Auto 0.1 X10*3/uL (0.0-0.2); Basophils Percent Auto 0.7 % (0-2); Eosinophils Absolute Auto 0.2 X10*3/uL (0.0-0.4); Eosinophils Percent Auto 1.5 % (0-4); Hematocrit 30.8 % (42.0-52.0); Hemoglobin 8.9 g/dl (14.0-18.0); Imm Gran Abs Auto 0.05 X10*3/uL (0.00-0.03); Imm Gran Pct Auto 0.4 % (0.0-0.4); Lymphocytes Absolute Auto 1.9 X10*3/uL (1.2-4.9); Lymphocytes Percent Auto 16.3 % (20-40); Mean Corpuscular HGB Conc 28.9 g/dl (31.0-36.0); Mean Corpuscular Volume 69.4 fL (80.0-98.0); Mean Platelet Volume 9.2 fL (9.4-12.4); Monocytes Absolute Auto 1.3 X10*3/uL (0.1-1.2); Monocytes Percent Auto 10.9 % (2-11); Neutrophils Absolute Auto 8.1 x10*3/uL (2.0-8.3); Neutrophils Percent Auto 70.2 % (45-73); Platelet Count 274 X10*3/uL (160-400); Red Blood Count 4.44 X10*6/uL (4.60-5.80); Red Cell Distribution Width 23.4 % (11.0-16.0); White Blood Count 11.5 X10*3/uL (4.8-10.8)
[2021-03-26] MEDS: hydroCHLOROthiazide 25 MG TABLET PO (05:54)
[2021-03-26] MEDS: Omeprazole 40 MG CAPSULE.DR PO ×2 (05:54→18:08)
[2021-03-26] MEDS: atenoloL 50 MG TABLET PO (05:54)
[2021-03-26] MEDS: Magnesium Citrate 300 ML SOLUTION PO (08:58)
[2021-03-26] MEDS: buPROPion HCL 75 MG TABLET PO ×2 (09:01→21:51)
--- NOTE | 2021-03-26 10:49 | HO.PM.IMPN ---
Subjective Subjective Date of Service: 03/26/21 Interval History: F/u on anemia, gib, no active bleed, H/H is stable, he is having hard time drinking the prep for colonscopy Review of Systems no fever no active bleed Physical Exam Vital Signs: Vital Signs: Last Vital Signs Temp 97.4 F 03/26/21 08:00 Pulse 55 03/26/21 08:00 Resp 18 03/26/21 08:00 BP 141/62 H 03/26/21 08:00 Pulse Ox 97 03/26/21 04:00 BMI result Body Mass Index 12.4 Const: Other: General: AO X 2, no acute distress Resp: CTA bilateral CVS: S1,S2,RRR GI: +BS, NT, no distention Skin: No rash Neuro: motor grossly intact Psych: appropriate affect Objective Data Active Medications Albuterol Sulfate (Albuterol Sulfate 90 Mcg 8 Gm Inhaler) 2 puff INHALE Q4H PRN PRN Reason: wheezing Atenolol (Atenolol 50 Mg Tablet) 50 mg PO DAILY@0630 [facility] Last Admin: 03/26/21 05:54 Dose: 50 mg Documented by: TIFFANY Atorvastatin Calcium (Atorvastatin Calcium 10 Mg Tablet) 10 mg PO BEDTIME [facility] Last Admin: 03/25/21 20:22 Dose: 10 mg Documented by: TIFFANY Bupropion HCl (Bupropion Hcl 75 Mg Tablet) 75 mg PO BID [facility] Last Admin: 03/26/21 09:01 Dose: 75 mg Documented by: GIOVANNA Doxazosin Mesylate (Doxazosin Mesylate 2 Mg Tablet) 4 mg PO BEDTIME [facility]; Protocol Last Admin: 03/25/21 20:21 Dose: 4 mg Documented by: TIFFANY Hydrochlorothiazide (Hydrochlorothiazide 25 Mg Tablet) 25 mg PO DAILY@0630 [facility] Last Admin: 03/26/21 05:54 Dose: 25 mg Documented by: TIFFANY Lorazepam (Lorazepam 0.5 Mg Tablet) 0.5 mg PO BEDTIME [facility] Last Admin: 03/25/21 20:22 Dose: 0.5 mg Documented by: TIFFANY Memantine (Memantine Hcl 10 Mg Tablet) 10 mg PO BEDTIME [facility] Last Admin: 03/25/21 20:22 Dose: 10 mg Documented by: TIFFANY Multivitamins/Vitamin C (Multivitamin Tablet) 1 tab PO DAILY [facility] Last Admin: 03/26/21 07:19 Dose: Not Given Documented by: CASANDRA Non-Admin Reason: Going for colonoscopy Omeprazole (Omeprazole 40 Mg Sangeeta.) 40 mg PO BID@0630,1630 [facility] Last Admin: 03/26/21 05:54 Dose: 40 mg Documented by: TIFFANY Labs CBC & Chem 7: 03/26/21 04:59 03/26/21 04:59 Labs: Laboratory Results - last 24 hr 03/26/21 03/26/21 04:59 04:59 MCV 69.4 L MCH 20.0 L MCHC 28.9 L RDW 23.4 H Plt Count 274 MPV 9.2 L Immature Gran % (Auto) 0.4 Neut % (Auto) 70.2 Lymph % (Auto) 16.3 L [place] % (Auto) 10.9 Eos % (Auto) 1.5 Baso % (Auto) 0.7 Lymph # (Auto) 1.9 [place] # (Auto) 1.3 H Eos # (Auto) 0.2 Baso # (Auto) 0.1 Abs Immat Gran (auto) 0.05 H Absolute Neuts (auto) 8.1 Absolute Nucleated RBC 0.000 Nucleated RBC % (auto) 0.0 Anion Gap 15 Estim Creat Clear Calc 24.4 Estimated GFR > 60 Fasting Glucose 107 H Calcium 9.1 Assessment and Plan (1) Microcytic anemia: Status: Acute (2) Syncope: Status: Acute Assessment and Plan: 80-year-old male with past medical history of diabetes, Alzheimer's? dementia presents to hospital syncopal episode.? #? syncope -? most likely secondary to severe anemia--no evidence of arrhythmia -? EKG shows no significant abnormality and no prolonged QT, no arrythmia on monitor #? microcytic anemia--negative FOBP -good effect with 2 units of RBC -Will have colonoscopy later today -continue PPI #? leukocytosis--reactive DVT prophylaxis with mechanical device. Quality Stroke Does the patient have a stroke diagnosis?: No VTE Prior VTE?: No VTE Risk Level:: Medical - moderate - high VTE Device Contraindication: Treatment Not Indicated VTE Drug Contraindication: N/A - Med Ordered
--- NOTE | 2021-03-26 13:02 | PC.NURSE ---
Dr Lane aware of PT/INR
--- NOTE | 2021-03-26 13:33 | HO.ANESPROP2 ---
HPI - Anesthesia Eval Consult details Narrative: Anemia PMFSH Active Problems Active Problems: All Active Problems (Updated 03/24/21 @ 06:09 by Solitario Watkins MD) Leukocytosis (Acute) Syncope (Acute) Microcytic anemia (Acute) Past Medical History Medical History Alzheimer's dementia Coronary artery disease Diabetes Diabetic neuropathy Family History Family history of problems with anesthesia: No Surgical History Surgical History No pertinent past surgical history History of Problems with Anesthesia: No Social History Social History Household Members: Spouse Housing: House Do you presently have visiting nurse or other home services: No Alcohol intake: never Patient Tobacco Use Status: Never used Tobacco Advance Directives Date on File: 03/25/21 Meds Allergies Allergy/AdvReac Type Severity Reaction Status Date / Time No Known Allergies Allergy Unverified 11/23/19 16:29 [No Known Allergies*] Active Medications: Current Medications Albuterol Sulfate (Albuterol Sulfate 90 Mcg 8 Gm Inhaler) 2 puff INHALE Q4H PRN PRN Reason: wheezing Atenolol (Atenolol 50 Mg Tablet) 50 mg PO DAILY@0630 REPLACED BY [facility] Last Admin: 03/26/21 05:54 Dose: 50 mg Documented by: Atorvastatin Calcium (Atorvastatin Calcium 10 Mg Tablet) 10 mg PO BEDTIME REPLACED BY [facility] Last Admin: 03/25/21 20:22 Dose: 10 mg Documented by: Bupropion HCl (Bupropion Hcl 75 Mg Tablet) 75 mg PO BID REPLACED BY [facility] Last Admin: 03/26/21 09:01 Dose: 75 mg Documented by: Doxazosin Mesylate (Doxazosin Mesylate 2 Mg Tablet) 4 mg PO BEDTIME REPLACED BY [facility]; Protocol Last Admin: 03/25/21 20:21 Dose: 4 mg Documented by: Hydrochlorothiazide (Hydrochlorothiazide 25 Mg Tablet) 25 mg PO DAILY@0630 [facility]PLACED BY [facility] Last Admin: 03/26/21 05:54 Dose: 25 mg Documented by: Lorazepam (Lorazepam 0.5 Mg Tablet) 0.5 mg PO BEDTIME REPLACED BY [facility] Last Admin: 03/25/21 20:22 Dose: 0.5 mg Documented by: Memantine (Memantine Hcl 10 Mg Tablet) 10 mg PO BEDTIME REPLACED BY [facility] Last Admin: 03/25/21 20:22 Dose: 10 mg Documented by: Multivitamins/Vitamin C (Multivitamin Tablet) 1 tab PO DAILY REPLACED BY [facility] Last Admin: 03/26/21 07:19 Dose: Not Given Documented by: Omeprazole (Omeprazole 40 Mg Capsule.) 40 mg PO BID@0630,1630 REPLACED BY [facility] Last Admin: 03/26/21 05:54 Dose: 40 mg Documented by: Home Medications Medication Instructions Recorded Confirmed Last Taken Type acetaminophen 500 mg tablet 1,000 mg PO Q6H PRN 03/24/21 03/24/21 03/23/21 20:00 History (Acetaminophen Extra Strength) albuterol sulfate 90 mcg/actuation 2 puff INHALATION Q4H PRN 03/24/21 03/24/21 Unknown History aerosol inhaler (ProAir HFA) aspirin 81 mg chewable tablet 81 mg PO DAILY 03/24/21 03/24/21 03/23/21 History atenolol 50 mg-chlorthalidone 25 1 tab PO DAILY@0630 03/24/21 03/24/21 03/23/21 History mg tablet atorvastatin 10 mg tablet 1 tab PO BEDTIME 03/24/21 03/24/21 03/23/21 History bupropion HCl 150 mg tablet,12 hr 1 tab PO DAILY 03/24/21 03/24/21 03/23/21 History sustained-release coenzyme Q10 100 mg capsule 100 mg PO DAILY 03/24/21 03/24/21 03/23/21 History (CoQ-10) doxazosin 4 mg tablet 1 tab PO BEDTIME 03/24/21 03/24/21 03/23/21 History ibuprofen 200 mg tablet 200 mg PO Q6H PRN 03/24/21 03/24/21 Unknown History lorazepam 0.5 mg tablet 1 tab PO BEDTIME 03/24/21 03/24/21 03/23/21 History memantine 10 mg tablet 1 tab PO BEDTIME 03/24/21 03/24/21 03/23/21 History metformin 500 mg tablet 1 tab PO BEDTIME 03/24/21 03/24/21 03/23/21 History multivitamin 1 tab PO DAILY 03/24/21 03/24/21 03/23/21 History omeprazole 20 mg capsule,delayed 20 mg PO DAILY 03/24/21 03/24/21 03/23/21 History release Exam Exam Date and Time: March 26, 2021 1333 Height,Weight and Vital Signs: Height 5 ft 6 in Weight 34.927 kg Last Vital Signs Temp 97.4 F 03/26/21 13:10 Pulse 68 03/26/21 13:10 Resp 18 03/26/21 13:10 BP 138/57 L 03/26/21 13:10 Pulse Ox 98 03/26/21 13:10 Pertinent Lab Results Pertinent Lab Results: Laboratory Tests 03/24/21 03/24/21 03/24/21 00:55 00:55 00:55 WBC RBC Hgb Hct MCV MCH MCHC RDW Plt Count MPV Immature Gran % (Auto) Neut % (Auto) Lymph % (Auto) [place] % (Auto) Eos % (Auto) Baso % (Auto) Lymph # (Auto) [place] # (Auto) Eos # (Auto) Baso # (Auto) Abs Immat Gran (auto) Absolute Neuts (auto) Absolute Nucleated RBC Nucleated RBC % (auto) PT INR Sodium 138 Potassium 4.2 Chloride 102 Carbon Dioxide 23 Anion Gap 17 BUN 27 H Creatinine 1.27 Estim Creat Clear Calc 22.1 Estimated GFR 54 Random Glucose 133 H Fasting Glucose Calcium 9.1 Ferritin Total Bilirubin 1.2 H AST 27 ALT 18 Alkaline Phosphatase 77 Troponin I High Sens Total Protein 7.0 Albumin 3.8 Lipase 37 Vitamin B12 Folate Urine Color Urine Appearance Urine pH Ur Specific [place] Urine Protein Urine Glucose (UA) Urine Ketones Urine Blood Urine Nitrite Ur Leukocyte Esterase Stool Occult Blood Ethyl Alcohol < 10 Influenza Type A (PCR) NEGATIVE Influenza Type B (PCR) NEGATIVE RSV RNA Qual (PCR) NEGATIVE SARS-CoV-2 RNA (RT-PCR) NEGATIVE Blood Type Antibody Screen Crossmatch 03/24/21 03/24/21 03/24/21 01:00 01:00 01:42 WBC 11.7 H RBC 3.70 L Hgb 6.6 L* 6.8 L* Hct 24.3 L 24.8 L MCV 65.7 L MCH 17.8 L MCHC 27.2 L RDW 20.0 H Plt Count 284 MPV 9.0 L Immature Gran % (Auto) 0.4 Neut % (Auto) 78.8 H Lymph % (Auto) 11.2 L [place] % (Auto) 8.4 Eos % (Auto) 0.7 Baso % (Auto) 0.5 Lymph # (Auto) 1.3 [place] # (Auto) 1.0 Eos # (Auto) 0.1 Baso # (Auto) 0.1 Abs Immat Gran (auto) 0.05 H Absolute Neuts (auto) 9.2 H Absolute Nucleated RBC 0.000 Nucleated RBC % (auto) 0.0 PT INR Sodium Potassium Chloride Carbon Dioxide Anion Gap BUN Creatinine Estim Creat Clear Calc Estimated GFR Random Glucose Fasting Glucose Calcium Ferritin Total Bilirubin AST ALT Alkaline Phosphatase Troponin I High Sens 4.9 Total Protein Albumin Lipase Vitamin B12 Folate Urine Color Urine Appearance Urine pH Ur Specific [place] Urine Protein Urine Glucose (UA) Urine Ketones Urine Blood Urine Nitrite Ur Leukocyte Esterase Stool Occult Blood Ethyl Alcohol Influenza Type A (PCR) Influenza Type B (PCR) RSV RNA Qual (PCR) SARS-CoV-2 RNA (RT-PCR) Blood Type Antibody Screen Crossmatch 03/24/21 03/24/21 03/24/21 01:42 03:10 05:35 WBC RBC Hgb Hct MCV MCH MCHC RDW Plt Count MPV Immature Gran % (Auto) Neut % (Auto) Lymph % (Auto) [place] % (Auto) Eos % (Auto) Baso % (Auto) Lymph # (Auto) [place] # (Auto) Eos # (Auto) Baso # (Auto) Abs Immat Gran (auto) Absolute Neuts (auto) Absolute Nucleated RBC Nucleated RBC % (auto) PT INR Sodium Potassium Chloride Carbon Dioxide Anion Gap BUN Creatinine Estim Creat Clear Calc Estimated GFR Random Glucose Fasting Glucose Calcium Ferritin Total Bilirubin AST ALT Alkaline Phosphatase Troponin I High Sens Total Protein Albumin Lipase Vitamin B12 Folate Urine Color YELLOW Urine Appearance CLEAR Urine pH 6.0 Ur Specific [place] >= 1.030 H Urine Protein NEG Urine Glucose (UA) NEG Urine Ketones 5 Urine Blood NEG Urine Nitrite NEG Ur Leukocyte Esterase NEG Stool Occult Blood NEGATIVE Ethyl Alcohol Influenza Type A (PCR) Influenza Type B (PCR) RSV RNA Qual (PCR) SARS-CoV-2 RNA (RT-PCR) Blood Type A Positive Antibody Screen NEGATIVE Crossmatch See Detail 03/24/21 03/24/21 03/24/21 07:21 07:21 15:07 WBC 11.7 H RBC 4.31 L Hgb 8.1 L Hct 29.1 L MCV 67.5 L MCH 18.8 L MCHC 27.8 L RDW 21.5 H Plt Count 278 MPV 9.0 L Immature Gran % (Auto) Neut % (Auto) Lymph % (Auto) [place] % (Auto) Eos % (Auto) Baso % (Auto) Lymph # (Auto) [place] # (Auto) Eos # (Auto) Baso # (Auto) Abs Immat Gran (auto) Absolute Neuts (auto) Absolute Nucleated RBC 0.000 Nucleated RBC % (auto) 0.0 PT INR Sodium Potassium Chloride Carbon Dioxide Anion Gap BUN Creatinine Estim Creat Clear Calc Estimated GFR Random Glucose Fasting Glucose Calcium Ferritin 8 L Total Bilirubin AST ALT Alkaline Phosphatase Troponin I High Sens Total Protein Albumin Lipase Vitamin B12 502 Folate 16.5 Urine Color Urine Appearance Urine pH Ur Specific [place] Urine Protein Urine Glucose (UA) Urine Ketones Urine Blood Urine Nitrite Ur Leukocyte Esterase Stool Occult Blood Ethyl Alcohol Influenza Type A (PCR) Influenza Type B (PCR) RSV RNA Qual (PCR) SARS-CoV-2 RNA (RT-PCR) Blood Type Antibody Screen Crossmatch 03/25/21 03/25/21 03/26/21 04:36 04:36 04:59 WBC 11.7 H 11.5 H RBC 4.58 L 4.44 L Hgb 9.2 L 8.9 L Hct 31.8 L 30.8 L MCV 69.4 L 69.4 L MCH 20.1 L 20.0 L MCHC 28.9 L 28.9 L RDW 22.9 H 23.4 H Plt Count 273 274 MPV 9.1 L 9.2 L Immature Gran % (Auto) 0.4 Neut % (Auto) 70.2 Lymph % (Auto) 16.3 L [place] % (Auto) 10.9 Eos % (Auto) 1.5 Baso % (Auto) 0.7 Lymph # (Auto) 1.9 [place] # (Auto) 1.3 H Eos # (Auto) 0.2 Baso # (Auto) 0.1 Abs Immat Gran (auto) 0.05 H Absolute Neuts (auto) 8.1 Absolute Nucleated RBC 0.000 0.000 Nucleated RBC % (auto) 0.0 0.0 PT 14.0 H INR 1.2 H Sodium Potassium Chloride Carbon Dioxide Anion Gap BUN Creatinine Estim Creat Clear Calc Estimated GFR Random Glucose Fasting Glucose Calcium Ferritin Total Bilirubin AST ALT Alkaline Phosphatase Troponin I High Sens Total Protein Albumin Lipase Vitamin B12 Folate Urine Color Urine Appearance Urine pH Ur Specific [place] Urine Protein Urine Glucose (UA) Urine Ketones Urine Blood Urine Nitrite Ur Leukocyte Esterase Stool Occult Blood Ethyl Alcohol Influenza Type A (PCR) Influenza Type B (PCR) RSV RNA Qual (PCR) SARS-CoV-2 RNA (RT-PCR) Blood Type Antibody Screen Crossmatch 03/26/21 04:59 WBC RBC Hgb Hct MCV MCH MCHC RDW Plt Count MPV Immature Gran % (Auto) Neut % (Auto) Lymph % (Auto) [place] % (Auto) Eos % (Auto) Baso % (Auto) Lymph # (Auto) [place] # (Auto) Eos # (Auto) Baso # (Auto) Abs Immat Gran (auto) Absolute Neuts (auto) Absolute Nucleated RBC Nucleated RBC % (auto) PT INR Sodium 140 Potassium 3.4 Chloride 102 Carbon Dioxide 26 Anion Gap 15 BUN 21 H Creatinine 1.15 Estim Creat Clear Calc 24.4 Estimated GFR > 60 Random Glucose Fasting Glucose 107 H Calcium 9.1 Ferritin Total Bilirubin AST ALT Alkaline Phosphatase Troponin I High Sens Total Protein Albumin Lipase Vitamin B12 Folate Urine Color Urine Appearance Urine pH Ur Specific [place] Urine Protein Urine Glucose (UA) Urine Ketones Urine Blood Urine Nitrite Ur Leukocyte Esterase Stool Occult Blood Ethyl Alcohol Influenza Type A (PCR) Influenza Type B (PCR) RSV RNA Qual (PCR) SARS-CoV-2 RNA (RT-PCR) Blood Type Antibody Screen Crossmatch Airway Mallampati Class: II TM Dist: >3cm Neck ROM: Full Loose/Missing/Broken Teeth: Yes (many missing teeth and very poor dentition) Heart: [id number] Lungs: cta b/l Assessment and Plan Final Anesthetic Review Family History of Problems with Anesthesia: No History of Problems with Anesthesia: No NPO: Yes ASA Class: III Final Preanesthetic Review: No Changes in Pt Med Stat, Meds/Allgs Chart Reviewed, Consent Obtained/Reviewed and Anes Risks/Benef Reviewed Patient Risk: Intermediate Procedure Risk: Intermediate Assessment/Block/Sedation in SS: Assess/Block/Sedation-SS Anesthetic Plan Anesthetic Plan: MAC: and Agree w/ Assess. and Plan Disposition: Standard PACU
--- NOTE | 2021-03-26 14:03 | MHC.CM.PN ---
DISPO PLANNING IS DEPENDENT ON COLONOSCOPY FINDINGS. CASE MANAGEMENT FOLLOWING FOR ASSESSMENT COMPLETION
--- NOTE | 2021-03-26 14:50 | P.BOP_ITS ---
Brief Operative Note Date of Service: 03/26/21 Pre-op diagnosis: MEMO Post-op diagnosis: same (colon and gastric polyps) Procedure: egd, colonoscpy Surgeon: Noe Romano Anesthesia: MAC Was an Arc Wel[employer] Apprentice used for this Procedure?: No Estimated blood loss (mL): 5 Pathology: other (bxs duodenum, polyps cecum, hepatic flexure, rectum) Condition: stable Disposition: PACU
--- NOTE | 2021-03-26 14:54 | PM.EVENT ---
Event Note Date of Service: 03/26/21 Event Note: EGD, colon dictated multiple small gastric polyps c/w fundic gland polyps, otherwise WNL duodenal bxs taken multiple colon polyps, all 10 mm or less removed with snare/bx/cautery diverticulosis rec advance diet, ok to start iron hold asa x 1week
--- NOTE | 2021-03-26 15:21 | MHC.CM.PN ---
PATIENT IS STILL OFF UNIT. CASE MANAGEMENT TO MEET WITH PATIENT FOR ASSESSMENT AND DISCHARGE PLAN.
--- NOTE | 2021-03-26 15:31 | MHC.CM.PN ---
PATIENT STATES THAT HE HAS BEEN COVID-19 VACCINATED AND BOOSTERED HE IS UNABLE TO RECALL THE DATES AND DOES NOT HAVE HIS IMMUNIZATION CARD ON HIM HE DOES REMEMBER THAT HE HAD 2 PFIZER AND 1 MODERNA. CASE MANAGEMENT TO ADD INFO TO EXPANSE IF HE S ABLE TO RETRIEVE THIS INFO.
[2021-03-26] MEDS: Doxazosin Mesylate 2 MG TABLET 4 MG PO (21:50)
[2021-03-26] MEDS: Acetaminophen 325 MG TABLET 650 MG PO (21:50)
[2021-03-26] MEDS: Atorvastatin Calcium 10 MG TABLET PO (21:51)
[2021-03-26] MEDS: Memantine HCl 10 MG TABLET PO (21:51)
[2021-03-26] MEDS: LORazepam 0.5 MG TABLET PO (21:51)
[2021-03-27] VITALS (7 sets, daily range): BP systolic 118–145; BP diastolic 45–80; PULSE 61–76; RESP 16–20; TEMP 36.1–36.6; O2SAT 94–98
--- NOTE | 2021-03-27 01:11 | OP_ITS ---
SURGEON: Noe Romano MD INDICATIONS: Iron deficiency anemia. PROCEDURE PERFORMED: 1. Upper endoscopy with biopsy. 2. Colonoscopy to the cecum with snare polypectomy and cauterization of colon polyps and biopsy. MEDICATIONS: Monitored anesthesia care. DESCRIPTION OF PROCEDURE: History and physical performed. The risks and benefits of the procedure were explained to the patient's and informed consent was obtained. The patient was placed in the left lateral decubitus position. The Olympus video gastroscope was introduced into the esophagus, stomach, and duodenum. Examination was performed. The scope was removed. He was repositioned for colonoscopy. Digital rectal exam was performed and was found to be normal. The Olympus pediatric video colonoscope was introduced into the rectum and advanced to the cecum without difficulty. The cecum was identified by transillumination, palpation, and identification of ileocecal valve. Examination was performed. The scope was removed. He tolerated both procedures well and was taken to recovery in stable condition. FINDINGS: Upper endoscopy: Esophagus; there were venous lakes present in the esophagus. There was no esophagitis. Stomach: The stomach showed a few benign-appearing gastric polyps in the body and fundus consistent with fundic gland polyps. No ulcer was seen. The mucosa was normal. Duodenum: The duodenum was normal. Biopsies were obtained to rule out malabsorption. COLONOSCOPY: The terminal ileum was not examined. There was a large amount of liquid and some formed stool present in the colon, which limited the examination for detection of small polyps. This was washed and suctioned. Multiple polyps were identified. In the cecum, was a less than 5 mm polyp, removed with biopsy forceps. In the hepatic flexure were 4 polyps, 3 measuring less than 5 mm were cauterized using the tip of the snare, 4th polyp measuring approximately 10 mm was snared and recovered via suction. There was sigmoid diverticulosis to a moderate degree, in the rectum was an approximately 7-8 mm polyp, which was removed with a snare and recovered via suction. Retroflexed examination showed moderate-sized internal hemorrhoids. IMPRESSION: 1. Gastric polyps. 2. Colon polyps. RECOMMENDATION: Follow up the biopsy results. MD DEVENDRA Barnett/ROSIO / [phone] [facility]
[2021-03-27] MEDS: atenoloL 50 MG TABLET PO (06:05)
[2021-03-27] MEDS: Omeprazole 40 MG CAPSULE.DR PO ×2 (06:05→17:46)
[2021-03-27] MEDS: hydroCHLOROthiazide 25 MG TABLET PO (06:05)
[2021-03-27] MEDS: Multivitamin TABLET 1 TAB PO (08:15)
[2021-03-27] MEDS: buPROPion HCL 75 MG TABLET PO ×2 (08:15→20:54)
--- NOTE | 2021-03-27 09:06 | MHC.CM.PN ---
Addendum entered by Li Cardoza 03/27/21 09:25: CORRECTION - IMM 03/27 IN CHART AND MAILED TO PATIENT Original Note: PER CONVERSATION WITH HCP/, REFERRALS PLACED TO (1ST CHOICE) [facility] AND THEN [facility] PATIENT HAS BEEN VACCINATED AGAINST COVID-19 WITH MODERNA SERIES 04/19/20 05/27/20 01/20/21 INFORMATION UPLOADED IN TO [employer]. CASE MANAGEMENT FOLLOWING FOR PLACEMENT NEEDS. VLADISLAV 03/27 DISCUSSED AND PLACED IN CHART. COPY MAILED TO AT ADDRESS ON FILE PER HER REQUEST.
--- NOTE | 2021-03-27 10:06 | P.PNIM_ITS ---
Subjective Subjective Date of Service: 03/27/21 Interval History: F/u on anemia, gib, no active bleed, H/H is stable, he is now complaning about right knee pain since fall yesterday Review of Systems no fever no active bleed Physical Exam Vital Signs: Vital Signs: Last Vital Signs Temp 97 F 03/27/21 07:53 Pulse 72 03/27/21 07:53 Resp 18 03/27/21 07:53 BP 126/52 L 03/27/21 07:53 Pulse Ox 94 03/27/21 07:53 BMI result Body Mass Index 29.8 Const: Other: General: AO X 2, no acute distress Resp: CTA bilateral CVS: S1,S2,RRR GI: +BS, NT, no distention Skin: No rash MsK: no swelling in the right kenee but pain with manipulation Neuro: motor grossly intact Psych: appropriate affect Objective Data Active Medications Albuterol Sulfate (Albuterol Sulfate 90 Mcg 8 Gm Inhaler) 2 puff INHALE Q4H PRN PRN Reason: wheezing Atenolol (Atenolol 50 Mg Tablet) 50 mg PO DAILY@0630 [facility] Last Admin: 03/27/21 06:05 Dose: 50 mg Documented by: ROS Atorvastatin Calcium (Atorvastatin Calcium 10 Mg Tablet) 10 mg PO BEDTIME [facility] Last Admin: 03/26/21 21:51 Dose: 10 mg Documented by: ROS Bupropion HCl (Bupropion Hcl 75 Mg Tablet) 75 mg PO BID [facility] Last Admin: 03/27/21 08:15 Dose: 75 mg Documented by: CAMILA Doxazosin Mesylate (Doxazosin Mesylate 2 Mg Tablet) 4 mg PO BEDTIME [facility]; Protocol Last Admin: 03/26/21 21:50 Dose: 4 mg Documented by: ROS Hydrochlorothiazide (Hydrochlorothiazide 25 Mg Tablet) 25 mg PO DAILY@0630 [facility] Last Admin: 03/27/21 06:05 Dose: 25 mg Documented by: ROS Lorazepam (Lorazepam 0.5 Mg Tablet) 0.5 mg PO BEDTIME [facility] Last Admin: 03/26/21 21:51 Dose: 0.5 mg Documented by: ROS Memantine (Memantine Hcl 10 Mg Tablet) 10 mg PO BEDTIME [facility] Last Admin: 03/26/21 21:51 Dose: 10 mg Documented by: ROS Multivitamins/Vitamin C (Multivitamin Tablet) 1 tab PO DAILY [facility] Last Admin: 03/27/21 08:15 Dose: 1 tab Documented by: CAMILA Omeprazole (Omeprazole 40 Mg Capsule.) 40 mg PO BID@0630,1630 [facility] Last Admin: 03/27/21 06:05 Dose: 40 mg Documented by: ROS Ondansetron HCl (Ondansetron Hcl 4 Mg/2 Ml Vial) 4 mg IVPUSH ONCE PRN PRN Reason: Nausea and Vomiting Labs CBC & Chem 7: 03/26/21 04:59 03/26/21 04:59 Assessment and Plan (1) Microcytic anemia: Status: Acute (2) Syncope: Status: Acute Assessment and Plan: 80-year-old male with past medical history of diabetes, Alzheimer's? dementia presents to hospital syncopal episode.? #? syncope -? most likely secondary to severe anemia--no evidence of arrhythmia -? EKG shows no significant abnormality and no prolonged QT, no arrythmia on monitor #? microcytic anemia--negative FOBP -s/p EGD and [place] on 03/26 with the following findings and recommendations: - EGD: multiple small gastric polyps c/w fundic gland polyps, otherwise WNL duodenal bxs taken -[place]: multiple colon polyps, all 10 mm or less removed with snare/bx/cautery diverticulosis rec advance diet, ok to start iron hold asa x 1week Improved H/H after 2 units of RBC Starting Iron, Hold ASA for 7 days #? leukocytosis--reactive and resolved. #Right knee pain from recent fall--Get Xray and PT eval DC to SNF Care discussed with 03/26 DVT prophylaxis with mechanical device. Quality Stroke Does the patient have a stroke diagnosis?: No VTE Prior VTE?: No VTE Risk Level:: Medical - moderate - high VTE Device Contraindication: Treatment Not Indicated VTE Drug Contraindication: N/A - Med Ordered
--- NOTE | 2021-03-27 10:13 | PC.NURSE ---
Skin/Wound assessment completed. Patient has trauma to right great toe with nail lifted off of toenail bed. Cleansed with wound cleanser, Solosite gel applied and cover with gauze and roll gauze. No other skin issues noted at this time.
[2021-03-27] MEDS: Ferrous Sulfate 324 MG TABLET.DR PO ×2 (11:23→20:54)
[2021-03-27] MEDS: Ascorbic Acid 500 MG TABLET PO (11:23)
[2021-03-27 13:04] LABS: COVID-19 Test Negative (Negative); IDNOW Serial# 55D5AD1C
--- NOTE | 2021-03-27 14:06 | MHC.CM.PN ---
[facility] IS OFFERING A BED. RITU ([phone]) AWARE AND AGREES WITH BED OFFER. FACILITY GOING FOR INSURANCE AUTH TO ADMIT. PATIENT IS COVID (-). PATIENT, RN, AND HOSPITALIST MADE AWARE.
--- NOTE | 2021-03-27 14:11 | HO.POSTANES ---
Post Anesthesia Evaluation Post Anesthesia Evaluation Vital Signs: Vital Signs Temp Pulse Resp BP Pulse Ox 03/27/21 10:56 97.1 F 66 18 135/54 L 98 03/27/21 07:53 97 F 72 18 126/52 L 94 03/27/21 06:09 61 118/45 L 03/27/21 03:51 97.8 F 69 18 140/46 H 96 Anesthesia: Monitored Mental Status: Awake Pain Control: Satisfactory Nausea/Vomiting: None Hydration: Adequate Anesthesia-Related Issues: No Anes. Related Issues
[2021-03-27] MEDS: Doxazosin Mesylate 2 MG TABLET 4 MG PO (20:54)
[2021-03-27] MEDS: Docusate Sodium 100 MG CAPSULE PO (20:54)
[2021-03-27] MEDS: Atorvastatin Calcium 10 MG TABLET PO (20:54)
[2021-03-27] MEDS: Memantine HCl 10 MG TABLET PO (20:54)
[2021-03-27] MEDS: LORazepam 0.5 MG TABLET PO (20:54)
[2021-03-28 03:12] VITALS: BP 131/61; PULSE 78; RESP 17; TEMP 36.4; O2SAT 96
[2021-03-28 06:35] VITALS: BP 133/64; PULSE 65
[2021-03-28] MEDS: Omeprazole 40 MG CAPSULE.DR PO (06:35)
[2021-03-28] MEDS: atenoloL 50 MG TABLET PO (06:35)
[2021-03-28] MEDS: hydroCHLOROthiazide 25 MG TABLET PO (06:35)
[2021-03-28 07:47] VITALS: BP 135/64; PULSE 65; RESP 16; TEMP 36.4; O2SAT 98
[2021-03-28] MEDS: Docusate Sodium 100 MG CAPSULE PO (08:31)
[2021-03-28] MEDS: Multivitamin TABLET 1 TAB PO (08:31)
[2021-03-28] MEDS: buPROPion HCL 75 MG TABLET PO (08:31)
[2021-03-28] MEDS: Ascorbic Acid 500 MG TABLET PO (08:31)
[2021-03-28] MEDS: Ferrous Sulfate 324 MG TABLET.DR PO (08:31)
--- NOTE | 2021-03-28 08:33 | P.DS_ITS ---
DS: Providers Provider Date of Service: 03/28/21 Date of admission: 03/24/21 06:01 Primary care physician: Unknown Physician Consults: 03/24/21 09:11 Consult to Gastroenterology Routine Consulting Provider: Noe Romano Reason for consultation: GIB acute blood loss anemia Has provider been notified: No DS: Diagnosis Discharge Diagnosis (1) Microcytic anemia: Status: Acute (2) Syncope: Status: Acute DS: Summary Hospital Course Hospital Course: Chief Complaint: Syncope ?this is an 80-year-old male with past medical history of diabetes, coronary artery disease, ND status post stent placements to 1001 in 2015, Alzheimer's dementia, diabetic neuropathy who presents to the hospital with a syncopal episode witnessed by .? Patient himself is alert to self and place but not to time or the events surrounding his syncopal episode.? According to the patient has been declining for the past month, he also reports constant dizziness, loss of balance, he has had more than 8 falls within the past 8 months.? According to the patient was standing in the kitchen when he syncopized lasting for about 5 minutes.? Patient reports that he did not hit his head, he has shortness of breath on exertion, reports no chest pain, no abdominal pain, no nausea or vomiting, he had diarrhea but has now resolved,? He has no urinary symptoms and no lower extremity edema.? Patient denies any black stools, no hematemesis or hematuria On arrival to the ED patient hemodynamically stable with no significant abnormal vitals Labs on arrival significant for WBC count of 11.7,? 6.6, hematocrit 24.3, total bili of 1.2 which is chronically elevated, UA pending, COVID-19 negative, alcohol negative,? stool occult blood negative, chest x-ray negative, has CT jennifer ws no acute intracranial pathology. Hospital course: #??Syncope--most likely secondary to severe anemia--no evidence of arrhythmia -? EKG shows no significant abnormality and no prolonged QT. He had no further episode in the hospital. #? microcytic anemia--Stoool ocult blood was negative. He was transfused 2 units of RBC with good effect, Hemoglobin went from 6.6 to 9. EGD and [place] on 03/[address] Romano with the following findings and recommendations: - EGD: multiple small gastric polyps c/w fundic gland polyps, otherwise WNL duodenal bxs taken -[place]: multiple colon polyps, all 10 mm or less removed with snare/bx/cautery diverticulosis Recommendation: advance diet, ok to start iron hold asa x 1week #? leukocytosis--reactive and resolved. #Right knee pain from recent? fall-- xray showed Prominent changes of enthesopathy about the right knee. No definite acute fracture or effusion is appreciated. Circumscribed sclerotic region overlying the femoral condyles likely representing a benign process. PT is recommending short term rehab. Time Spent with Patient Time attestation: Total time spent providing and/or coordinating discharge services: Discharge coordination time: Greater than 30 minutes Quality: Stroke Does the patient have a stroke diagnosis?: No Physical Exam Verdana 4l Vital Signs: Verdana 4d Verdana 4d Vital Signs: Verdana 4d Verdana 4Bd Last Vital Signs Verdana 4d Print Shop Stenographer New 4d Print Shop Stenographer New 4d Temp 97.5 F 03/28/21 07:47 Print Shop Stenographer New 4d Pulse 65 03/28/21 07:47 Print Shop Stenographer NewNew 4d Resp 16 03/28/21 07:47 BP 135/64 03/28/21 07:47 Pulse Ox 98 03/28/21 07:47 BMI result Body Mass Index 29.8 DS: Data Data Completed and Pending Pending studies at discharge: Pending at discharge 03/26/21 14:33 Surgical [PTH] Routine Labs on day of discharge: Laboratory Results - last 24 hr 03/27/21 12:40 COVID-19 (SEB) Negative COVID-19 Clin Com See Note Discharge Plan Discharge Anticipated Discharge Date/Time: 03/28/21 08:33 Patient Disposition: Xfer SNF Discharge Diagnosis: Syncope, iron def Referrals: [facility] [Outside] - 1 Week Physician,Unknown J [Primary Care Provider] - 1 Week Discharge Medications: New docusate sodium 100 mg Capsule 100 mg PO BID Qty: 60 RF: 0 ascorbic acid (vitamin C) [Vitamin C] 500 mg Tablet 500 mg PO DAILY Qty: 30 RF: 0 ferrous sulfate 324 mg (65 mg iron) Tablet,Delayed Release (Dr/Ec) 324 mg PO BID Qty: 60 RF: 0 Continued multivitamin Tablet 1 tab PO DAILY RF: 0 metformin 500 mg tablet 1 tab PO BEDTIME RF: 0 bupropion HCl 150 mg tablet sustained-release 12 hr 1 tab PO DAILY RF: 0 atorvastatin 10 mg tablet 1 tab PO BEDTIME RF: 0 atenolol-chlorthalidone 50-25 mg tablet 1 tab PO DAILY@0630 RF: 0 acetaminophen [Acetaminophen Extra Strength] 500 mg Tablet 1,000 mg PO Q6H PRN (Reason: Pain) RF: 0 lorazepam 0.5 mg tablet 1 tab PO BEDTIME RF: 0 ibuprofen 200 mg Tablet 200 mg PO Q6H PRN (Reason: Pain) RF: 0 omeprazole 20 mg Capsule,Delayed Release(Dr/Ec) 20 mg PO DAILY RF: 0 doxazosin 4 mg tablet 1 tab PO BEDTIME RF: 0 albuterol sulfate [ProAir HFA] 90 mcg/actuation HFA aerosol inhaler 2 puff inhalation Q4H PRN (Reason: wheezing) RF: 0 coenzyme Q10 [CoQ-10] 100 mg Capsule 100 mg PO DAILY RF: 0 memantine 10 mg tablet 1 tab PO BEDTIME RF: 0 Held aspirin 81 mg Tablet,Chewable 81 mg PO DAILY RF: 0 Hold Instructions: Resume on 04/02/21. hold for 1 week Discharge Orders: Discharge Order (Routine); Ordered 03/28/21 Ordered By: Raymundo Nicolas Diet: advance to usual diet Activity on Discharge: As tolerated Stand Alone Forms: Patient Portal Discharge page Care Plan Goals: Fall prevention and correction of iron deficiency anemia Health Concerns: Fall, iron deficiency anemia Plan of Treatment: Take Iron as recommended, hold aspirin for one week, follow up with PCP in a week, and participate in rehab. covid screen is negative. Assessment: As above
--- NOTE | 2021-03-28 08:55 | MHC.CM.PN ---
PATIENT TO TRANSFER TO [place] [facility]IA [facility]. REQUEST FOR [address] TIME.PATIENT, RN, UNIT, AND PATIENT'S , RITU ([phone]) AWARE OF PLAN. IMM 03/27 IN CHART.
== END 2021-03-28 10:45 | disposition skilled nursing facility (03) | DRG 812 ==
LOC: HO.ED 03-24 04:21 → HO.EDOVER 03-24 06:06 → HO.S3 03-24 19:29
PROVIDERS: Internal Medicine; Internal Medicine Gastroenterology; Admitting Provider Internal Medicine; Emergency Provider Emergency Medicine Emergency Medical Services; Visit Provider Internal Medicine
PROC: 0DB78ZX Excision of Stomach, Pylorus, Via Natural or Artificial Opening Endoscopic, Diagnostic (ICD-10-PCS; principal; 2021-03-26 13:40)
DX: D64.9 Anemia, unspecified (principal); G30.9 Alzheimer's disease, unspecified; I25.2 Old myocardial infarction; F02.80 Dementia in other diseases classified elsewhere, unspecified severity, without behavioral disturbance, psychotic disturbance, mood disturbance, and anxiety; D72.829 Elevated white blood cell count, unspecified; K63.5 Polyp of colon; K31.7 Polyp of stomach and duodenum; Z79.1 Long term (current) use of non-steroidal anti-inflammatories (NSAID); M25.561 Pain in right knee; D64.2 Secondary sideroblastic anemia due to drugs and toxins; E11.40 Type 2 diabetes mellitus with diabetic neuropathy, unspecified; Z79.82 Long term (current) use of aspirin; Z79.899 Other long term (current) drug therapy
CPT/HCPCS: 0241U; 36415; 70450; 71046; 72125; 73560; 80048; 80053; 81003; 82077; 82272; 82607; 82728; 82746; 83690; 84484; 85014; 85018; 85025; 85027; 85610; 86850; 86900; 86901; 86923; 87635; 88305; 93005; 93306; 97162; 99285; P9016

== ENCOUNTER 2021-05-16 20:22 | Emergency (ER) | payer MEDICARE, SELFPAY ==
--- NOTE | ~2021-05-16 | CT_ITS ---
EXAMINATION: CT HEAD WITHOUT CONTRAST CT CERVICAL SPINE WITHOUT CONTRAST CLINICAL INFORMATION: Fall. COMPARISON: CT scan of the head 03/26/2021. TECHNIQUE: Filling Station Laborer images were obtained. CT imaging of the head and cervical spine was performed without contrast. Data was reformatted into multiplanar images at the acquisition workstation. This CT examination was performed using dose optimization techniques as appropriate, including one or more of the following: Automated exposure control, iterative reconstruction, and adjustment of technique factors (mA and/or kVp) according to patient size (this includes techniques or standardized protocols for targeted exams where dose is matched to indication/reason for exam). DLP: 1523 mGy-cm. FINDINGS: Head: There is focal swelling of the right frontal scalp. No acute intracranial hemorrhage or abnormal extra-axial collection. No intracranial mass effect or midline shift. Lateral and third ventricles are proportionate to the subarachnoid spaces. No hydrocephalus. Scattered ill-defined foci of hypoattenuation visualized within the periventricular white matter. Garcia-white matter differentiation of the otherwise preserved and there is no evidence of acute territorial infarct. The calvarium and skull base are intact. The temporomandibular joints are grossly symmetric. Cervical spine: There is slight anterolisthesis of C2 on C3 and C4-C5. Alignment is otherwise normal. Vertebral heights are preserved. There is no acute fracture. Canal patency is not well assessed on this examination due to inherent limitations of CT without intrathecal contrast. Grossly no evidence of canal compromise. No abnormal prevertebral soft tissue swelling. Grossly no evidence of canal compromise. Visualized soft tissues of the neck including the thyroid gland are normal. Lung apices are clear. CT/CT head/brain wo con IMPRESSION: Head: There is swelling of the right frontal scalp. Scattered chronic small vessel ischemic changes are visualized within the periventricular white matter. Grossly no evidence of acute territorial infarct or hemorrhage. Cervical spine: Unremarkable examination in that there is no acute cervical spine fracture and no posttraumatic spinal subluxation. Grossly no evidence of canal compromise.
--- NOTE | ~2021-05-16 | CT_ITS ---
EXAMINATION: CT HEAD WITHOUT CONTRAST CT CERVICAL SPINE WITHOUT CONTRAST CLINICAL INFORMATION: Fall. COMPARISON: CT scan of the head 03/26/2021. TECHNIQUE: Nat Instructor images were obtained. CT imaging of the head and cervical spine was performed without contrast. Data was reformatted into multiplanar images at the acquisition workstation. This CT examination was performed using dose optimization techniques as appropriate, including one or more of the following: Automated exposure control, iterative reconstruction, and adjustment of technique factors (mA and/or kVp) according to patient size (this includes techniques or standardized protocols for targeted exams where dose is matched to indication/reason for exam). DLP: 1523 mGy-cm. FINDINGS: Head: There is focal swelling of the right frontal scalp. No acute intracranial hemorrhage or abnormal extra-axial collection. No intracranial mass effect or midline shift. Lateral and third ventricles are proportionate to the subarachnoid spaces. No hydrocephalus. Scattered ill-defined foci of hypoattenuation visualized within the periventricular white matter. Garcia-white matter differentiation of the otherwise preserved and there is no evidence of acute territorial infarct. The calvarium and skull base are intact. The temporomandibular joints are grossly symmetric. Cervical spine: There is slight anterolisthesis of C2 on C3 and C4-C5. Alignment is otherwise normal. Vertebral heights are preserved. There is no acute fracture. Canal patency is not well assessed on this examination due to inherent limitations of CT without intrathecal contrast. Grossly no evidence of canal compromise. No abnormal prevertebral soft tissue swelling. Grossly no evidence of canal compromise. Visualized soft tissues of the neck including the thyroid gland are normal. Lung apices are clear. CT/CT cervical spine wo con IMPRESSION: Head: There is swelling of the right frontal scalp. Scattered chronic small vessel ischemic changes are visualized within the periventricular white matter. Grossly no evidence of acute territorial infarct or hemorrhage. Cervical spine: Unremarkable examination in that there is no acute cervical spine fracture and no posttraumatic spinal subluxation. Grossly no evidence of canal compromise.
[2021-05-16 20:39] VITALS: BP 140/58; PULSE 88; O2SAT 98
[2021-05-16 20:41] VITALS: BP 138/60; PULSE 73; RESP 16; O2SAT 98; BMI 24.2
--- NOTE | 2021-05-16 21:13 | ED.FALL ---
HPI - Fall General Chief Complaint: Fall Stated Complaint: back pain due to falls Time Seen by Provider: 05/16/21 21:01 Source: patient, family and EMS Mode of arrival: EMS Limitations: no limitations History of Present Illness HPI Narrative: Patient comes from assisted living via ambulance. Patient has history of Alzheimer's and does not remember exactly what happened, but he believes that there were some papers on the floor in his room, states he either slipped while walking in his room or she fell forwards trying to pick them up. Patient states that he does remember that he did not lose consciousness. Pain to the patient's , patient is not on any blood thinners. At this time, patient complaining of pain in his forehead where he has an ecchymosis. Patient denies neck pain, no chest pain, no hip pain. Patient states that he has chronic back pain, but it did not get aggravated by the fall. Related Data Home Medications Medication Instructions Recorded Confirmed acetaminophen 500 mg tablet 1,000 mg PO Q6H PRN 03/24/21 03/24/21 (Acetaminophen Extra Strength) albuterol sulfate 90 mcg/actuation 2 puff INHALATION Q4H PRN 03/24/21 03/24/21 aerosol inhaler (ProAir HFA) aspirin 81 mg chewable tablet 81 mg PO DAILY 03/24/21 03/24/21 atenolol 50 mg-chlorthalidone 25 1 tab PO DAILY@0630 03/24/21 03/24/21 mg tablet atorvastatin 10 mg tablet 1 tab PO BEDTIME 03/24/21 03/24/21 bupropion HCl 150 mg tablet,12 hr 1 tab PO DAILY 03/24/21 03/24/21 sustained-release coenzyme Q10 100 mg capsule 100 mg PO DAILY 03/24/21 03/24/21 (CoQ-10) doxazosin 4 mg tablet 1 tab PO BEDTIME 03/24/21 03/24/21 ibuprofen 200 mg tablet 200 mg PO Q6H PRN 03/24/21 03/24/21 lorazepam 0.5 mg tablet 1 tab PO BEDTIME 03/24/21 03/24/21 memantine 10 mg tablet 1 tab PO BEDTIME 03/24/21 03/24/21 metformin 500 mg tablet 1 tab PO BEDTIME 03/24/21 03/24/21 multivitamin 1 tab PO DAILY 03/24/21 03/24/21 omeprazole 20 mg capsule,delayed 20 mg PO DAILY 03/24/21 03/24/21 release Previous Rx's Medication Instructions Recorded ascorbic acid (vitamin C) 500 mg 500 mg PO DAILY #30 tab 03/28/21 tablet (Vitamin C) docusate sodium 100 mg capsule 100 mg PO BID #60 cap 03/28/21 ferrous sulfate 324 mg (65 mg 324 mg PO BID #60 tab 03/28/21 iron) tablet,delayed release Allergies Allergy/AdvReac Type Severity Reaction Status Date / Time No Known Allergies Allergy Unverified 11/23/19 16:29 [No Known Allergies*] Review of Systems Review of Systems: Constitutional : No Weight loss, No Fever, No Chills, No Night Sweats, No Fatigue, No Malaise ENT/Mouth : No Hearing loss, No Ear Pain, No Nasal Congestion, No Sinus Pain, No Hoarseness, No sore throat, No Rhinorrhea, No Swallowing Difficulty Eyes: No Eye Pain, No Swelling, No Redness, No Foreign Body, No Discharge, No Vision Changes Cardiovascular : No Chest Pain, No SOB, No Dyspnea on Exertion, No Orthopnea, No Edema, No Palpitations Respiratory : No Cough, No Sputum, No Wheezing, No Smoke Exposure, No Dyspnea Gastrointestinal : No Nausea, No Vomiting, No Diarrhea, No Constipation, No abdominal Pain, No Hematochezia, No Melena Genitourinary : no irregular bleeding, No Dysuria, No Urinary Frequency, No Hematuria, No Urinary Incontinence, No Urgency, No Flank Pain, No Urinary Flow Changes, No Hesitancy Musculoskeletal : Complaining of chronic back pain. Skin : Complaining of ecchymosis in his right forehead Neuro : No Weakness, No Numbness, No Paresthesias, No Loss of Consciousness, No Dizziness, No Headache Psych : No Anxiety/Panic, No Depression, No SI/HI/AH/VH, No Social Issues, Heme/Lymph: No Bruising, No Bleeding,No Lymphadenopathy Endocrine : No Polyuria, No Polydipsia, No Temperature Intolerance PMF Past Medical History Medical History Alzheimer's dementia Coronary artery disease Diabetes Diabetic neuropathy Surgical History No pertinent past surgical history Social History Social History Household Members: Spouse Housing: House Do you presently have visiting nurse or other home services: No Alcohol intake: never Patient Tobacco Use Status: Never used Tobacco Use of substances other than those prescribed or required for medical reasons: No Advance Directives: Yes Advance Directives on File: Yes Advance Directives Date on File: 03/25/21 Physical Exam Vital Signs: Vital Signs: Last Vital Signs Pulse 73 05/16/21 20:41 Resp 16 05/16/21 20:41 BP 138/60 05/16/21 20:41 Pulse Ox 98 05/16/21 20:41 BMI result Body Mass Index 24.2 Const: Other: Appearance: Alert. Oriented X3. No acute distress. Eyes: Pupils equal, round and reactive to light. ENT: Pharynx normal. On C-collar. No palpable step-offs, no pain to palpation bilaterally or midline Neck: Normal inspection. Neck supple. No lymph nodes noted. No crepitus CVS: Normal heart rate and rhythm. Pulses normal. Normal S1 and S2 Respiratory: No respiratory distress. Breath sounds normal. No Wheezing. No rales Abdomen: Soft and nontender. No rigidity. No distention. good BS x4 Skin: Skin warm and dry. there is a moderate-size ecchymosis on the right side of the forehead, small abrasion, no laceration, no active bleeding. Extremities: No lower extremity edema. No Lacerations. No Rash Neuro: Oriented X 3. No motor deficit. No sensory deficit. Moving all extermities. No slurred speech. CN 2 through 12 grossly intact Course Course Course Narrative: Patient's head CT and neck CT are pending. patient overall is feeling well. According to the , patient baseline. Patient was ambulated with a walker which she is uses at baseline and did well. Patient ready for returning to his living facility. MDM - Fall Imaging Data Head CT and cervical spine CT: Radiologist's impression: FINDINGS: Head: There is focal swelling of the right frontal scalp. No acute intracranial hemorrhage or abnormal extra-axial collection. No intracranial mass effect or midline shift. Lateral and third ventricles are proportionate to the subarachnoid spaces. No hydrocephalus. Scattered ill-defined foci of hypoattenuation visualized within the periventricular white matter. Garcia-white matter differentiation of the otherwise preserved and there is no evidence of acute territorial infarct. The calvarium and skull base are intact. The temporomandibular joints are grossly symmetric. Cervical spine: There is slight anterolisthesis of C2 on C3 and C4-C5. Alignment is otherwise normal. Vertebral heights are preserved. There is no acute fracture. Canal patency is not well assessed on this examination due to inherent limitations of CT without intrathecal contrast. Grossly no evidence of canal compromise. No abnormal prevertebral soft tissue swelling. Grossly no evidence of canal compromise. Visualized soft tissues of the neck including the thyroid gland are normal. Lung apices are clear.? CT/CT cervical spine wo con IMPRESSION: Head: There is swelling of the right frontal scalp. Scattered chronic small vessel ischemic changes are visualized within the periventricular white matter. Grossly no evidence of acute territorial infarct or hemorrhage. ? Cervical spine: Unremarkable examination in that there is no acute cervical spine fracture and no posttraumatic spinal subluxation. Grossly no evidence of canal compromise. Discharge Plan Discharge Clinical Impression: Fall, Contusion of head Patient Disposition: Home, Self-Care Instructions: Ecchymosis (ED) Additional Instructions: Please follow-up with your primary care physician tomorrow. If you have any worsening or new symptoms, please return to the emergency room or call 911 Prescriptions: No Action multivitamin Tablet 1 tab PO DAILY 0RF metformin 500 mg tablet 1 tab PO BEDTIME 0RF bupropion HCl 150 mg tablet sustained-release 12 hr 1 tab PO DAILY 0RF atorvastatin 10 mg tablet 1 tab PO BEDTIME 0RF atenolol-chlorthalidone 50-25 mg tablet 1 tab PO DAILY@0630 0RF acetaminophen [Acetaminophen Extra Strength] 500 mg Tablet 1,000 mg PO Q6H PRN (Reason: Pain) 0RF lorazepam 0.5 mg tablet 1 tab PO BEDTIME 0RF ibuprofen 200 mg Tablet 200 mg PO Q6H PRN (Reason: Pain) 0RF omeprazole 20 mg Capsule,Delayed Release(Dr/Ec) 20 mg PO DAILY 0RF doxazosin 4 mg tablet 1 tab PO BEDTIME 0RF aspirin 81 mg Tablet,Chewable 81 mg PO DAILY 0RF Hold Instructions: Resume on 04/02/21. hold for 1 week albuterol sulfate [ProAir HFA] 90 mcg/actuation HFA aerosol inhaler 2 puff inhalation Q4H PRN (Reason: wheezing) 0RF coenzyme Q10 [CoQ-10] 100 mg Capsule 100 mg PO DAILY 0RF memantine 10 mg tablet 1 tab PO BEDTIME 0RF ascorbic acid (vitamin C) [Vitamin C] 500 mg Tablet 500 mg PO DAILY Qty: 30 0RF docusate sodium 100 mg Capsule 100 mg PO BID Qty: 60 0RF ferrous sulfate 324 mg (65 mg iron) Tablet,Delayed Release (Dr/Ec) 324 mg PO BID Qty: 60 0RF
[2021-05-17] VITALS: BP 134/60; PULSE 68; RESP 16; TEMP 36.7; O2SAT 96
== END 2021-05-17 01:04 | disposition home or self-care (01) ==
PROVIDERS: Emergency Provider Emergency Medicine; PCP Family Medicine
DX: S00.83XA Contusion of other part of head, initial encounter (principal); W01.0XXA Fall on same level from slipping, tripping and stumbling without subsequent striking against object, initial encounter; G30.9 Alzheimer's disease, unspecified; F02.80 Dementia in other diseases classified elsewhere, unspecified severity, without behavioral disturbance, psychotic disturbance, mood disturbance, and anxiety; E11.9 Type 2 diabetes mellitus without complications; Y93.9 Activity, unspecified; Y92.099 Unspecified place in other non-institutional residence as the place of occurrence of the external cause; Y99.9 Unspecified external cause status
CPT/HCPCS: 70450; 72125; 99284